=== PATIENT | female | born 1990 | race Caucasian/White ===

== ENCOUNTER 2017-02-06 11:41 | Inpatient (IN) ==
[2017-02-06] MEDS ORDERED: OLANZapine INJ 10 MG VIAL IM ONE ×2 (12:27→14:14)
--- OUTSIDE RECORDS SUMMARY | 2017-02-06 12:36 | External Medical Summary ---
:1990 Author Organization eClinicalWorks Care Team Providers Name Role Phone Campbell Zamora Provider Role Unavailable Allergies No Known Allergies Problems No Known Problems Medications No Known Medications Results No Known Results Summary Purpose eClinicalWorks Submission
--- OUTSIDE RECORDS SUMMARY | 2017-02-06 12:36 | External Medical Summary | Referral Summary ---
:1990 Author Organization Via [facility] Address [address] [place] [address] Care Team Providers Name Role Phone [facility], [facility] Primary Care Physician Unavailable Encounter [facility] [id number] Date(s): 08/15/15 - 08/15/15 [facility] [address] [place], [place] [address] Discharge Diagnosis: Knee joint pain Discharge Diagnosis: Right ankle sprain Discharge Disposition: 01-Home or Self Care Attending Physician: George Link MD Admitting Physician: George Link MD Referring Physician: No PCP, Pt States Vital Signs Most recent to oldest [Reference Range]: 1 Temperature Oral [35.8-37.3 degC] 36.6 degC (08/15/15 3:27 PM) Peripheral Pulse Rate [60-100 bpm] 128 bpm *HI* (08/15/15 3:27 PM) Respiratory Rate [14-20 br/min] 18 br/min (08/15/15 3:27 PM) Blood Pressure [90-140/60-90 mmHg] 130/84mmHg (08/15/15 3:27 PM) SpO2 99 % (08/15/15 3:27 PM) Problem List Condition Effective Dates Status Health Status Informant Acute pain(Confirmed) Active Anxiety(Confirmed) Active patient Depression(Confirmed) Active patient Hx of pilonidal cyst(Confirmed) Active patient Migraines(Confirmed) Active patient Ovarian cyst(Confirmed) Active patient Paranoid schizophrenia(Confirmed) Active patient Schizophrenia(Confirmed) Active Tobacco user(Confirmed) Active patient Allergies, Adverse Reactions, Alerts Substance Reaction Severity Status Cinnamon Anaphylaxis Severe Active doxycycline Breath shortness Severe Active hydrOXYzine Throat swelling Severe Active Macrobid Shortness of breath Severe Active sulfamethoxazole-trimethoprim Adverse Reaction Mild Active Emesis - persistent Medications Bactroban 1 govind, Topical, TID, 0 Refill(s) Start Date: 03/30/15 Status: OrderedBenadryl 0 Refill(s) Start Date: 07/13/15 Status: OrderedCrutches (DME) DME Item crutches, ankle/knee sprain, 1 week or until improvement of pain, See Instructions, # 1 Each, 0 Refill(s), Supply Start Date: 08/15/15 Status: OrderedKeflex Oral, 0 Refill(s) Start Date: 06/26/15 Status: OrderedLevsin SL 0.125 mg sublingual tablet 0.125 mg 1 tabs, SubLingual, q4hr, Abdominal Cramping, per protocol Dr. Yasmany Goetz, # 12 tabs, 0 Refill(s) Start Date: 05/03/15 Status: OrderedMobic 15 mg oral tablet 15 mg 1 tabs, Oral, Daily, # 10 tabs, 0 Refill(s) Start Date: 08/15/15 Stop Date: 08/25/15 Status: OrderedNaprosyn 250 mg oral tablet 250 mg 1 tabs, Oral, BID, as needed for pain, # 20 tabs, 0 Refill(s) Start Date: 06/26/15 Status: OrderedNorco 5 mg-325 mg oral tablet 1 tabs, Oral, q6hr, as needed for pain, # 12 tabs, 0 Refill(s) Start Date: 08/15/15 Stop Date: 08/16/15 Status: OrderedRisperDAL 2 mg oral tablet 2 mg 1 tabs, Oral, BID, 0 Refill(s), Indication: psychosis Start Date: 03/30/15 Status: OrderedRisperDAL Consta 25 mg 2 mL, IntraMuscular, q2wk, 0 Refill(s) Start Date: 03/30/15 Status: OrderedSEROquel 50 mg oral tablet 50 mg 1 tabs, Oral, Bedtime (once a day), Sleep, 0 Refill(s), Indication: insomnia Start Date: 03/30/15 Status: Ordered Results No data available for this section Immunizations No data available for this section Procedures Procedure Date Related Diagnosis Body Site Excision Cyst Pilonidal1 03/15/15 section CSECTION Dental operation Pilonidal incision 1auto-populated from documented surgical case Social History Social History Type Response Smoking Status Current every day smoker; Type: Cigarettes; Tobacco use per day : 1 Pack Assessment and Plan No data available for this section
--- OUTSIDE RECORDS SUMMARY | 2017-02-06 12:36 | External Medical Summary | Referral Summary ---
:1990 Author Organization Via [facility] Address [address] [place] [address] Care Team Providers Name Role Phone [facility], [facility] Primary Care Physician Unavailable Encounter [facility] [id number] Date(s): 12/18/15 - 12/18/15 [facility] [address] [place], [place] [address] Discharge Diagnosis: Abdominal pain Discharge Disposition: 01-Home or Self Care Attending Physician: John Parham DO Admitting Physician: John Parham DO Vital Signs Most recent to oldest [Reference Range]: 1 Temperature Oral [35.8-37.3 degC] 36.9 degC (12/18/15 7:13 PM) Peripheral Pulse Rate [60-100 bpm] 78 bpm (12/18/15 10:30 PM) Respiratory Rate [14-20 br/min] 16 br/min (12/18/15 10:30 PM) Blood Pressure [90-140/60-90 mmHg] 134/93mmHg (12/18/15 10:30 PM) SpO2 100 % (12/18/15 10:30 PM) Problem List Condition Effective Dates Status Health Status Informant Acute pain(Confirmed) Active Anxiety(Confirmed) Active patient Depression(Confirmed) Active patient Hx of pilonidal Active patient cyst(Confirmed) Migraines(Confirmed) Active patient Ovarian cyst(Confirmed) Active patient Paranoid Active patient schizophrenia(Confirmed) (Confirmed) 12/27/14 - 03/30/15 10:45 PM Resolved Schizophrenia(Confirmed) Active Tobacco user(Confirmed) Active patient Allergies, Adverse Reactions, Alerts Substance Reaction Severity Status Cinnamon Anaphylaxis Severe Active doxycycline Breath shortness Severe Active hydrOXYzine Throat swelling Severe Active Macrobid Shortness of breath Severe Active sulfamethoxazole-trimethoprim Adverse Reaction Mild Active Emesis - persistent Zoloft Active Medications Benadryl 0 Refill(s) Start Date: 07/13/15 Status: OrderedCrutches (DME) DME Item crutches, ankle/knee sprain, 1 week or until improvement of pain, See Instructions, # 1 Each, 0 Refill(s), Supply Start Date: 08/15/15 Status: OrderedHibiclens 4% topical soap 1 govind, Topical, Once, # 100 mL, 1 Refill(s) Start Date: 09/11/15 Status: OrderedHYDROcodone-acetaminophen 5 mg-325 mg oral tablet 1 tabs, Oral, q4hr, Pain Moderate (4-6), # 12 tabs, 0 Refill(s) Start Date: 11/14/15 Status: OrderedKeflex Oral, 0 Refill(s) Start Date: 06/26/15 Status: OrderedLevsin SL 0.125 mg sublingual tablet 0.125 mg 1 tabs, SubLingual, q4hr, Abdominal Cramping, # 15 tabs, 0 Refill(s) Start Date: 12/04/15 Status: OrderedNorco 5 mg-325 mg oral tablet tabs, Oral, q6hr, 0 Refill(s) Start Date: 09/11/15 Status: OrderedNorco 5 mg-325 mg oral tablet 1 tabs, Oral, q4hr, as needed for pain, X 2 days, # 12 tabs, 0 Refill(s) Start Date: 12/18/15 Stop Date: 12/20/15 Status: Orderedpenicillin V potassium 500 mg oral tablet 1,000 mg 2 tabs, Oral, BID, X 10 days, # 40 tabs, 0 Refill(s) Start Date: 12/12/15 Stop Date: 12/22/15 Status: OrderedRisperDAL 2 mg oral tablet 2 mg 1 tabs, Oral, BID, 0 Refill(s), Indication: psychosis Start Date: 03/30/15 Status: OrderedRisperDAL Consta 25 mg 2 mL, IntraMuscular, q2wk, 0 Refill(s) Start Date: 03/30/15 Status: OrderedSEROquel 50 mg oral tablet 50 mg 1 tabs, Oral, Bedtime (once a day), Sleep, 0 Refill(s), Indication: insomnia Start Date: 03/30/15 Status: OrderedZofran ODT 4 mg oral tablet, disintegrating 4 mg 1 tabs, Oral, q4hr, Nausea or Vomiting | as needed for nausea/vomiting, X 2 days, # 12 tabs, 0 Refill(s) Start Date: 12/18/15 Stop Date: 12/20/15 Status: Ordered Results Hematology Most recent to oldest [Reference Range]: 1 WBC [4.8-10.8 10*3/uL] 10.3 10*3/uL (12/18/15 7:39 PM) RBC [4.00-5.20] 4.98 (12/18/15 7:39 PM) Hgb [12.0-16.0 gm/dL] 13.4 gm/dL (12/18/15 7:39 PM) Hct [37.0-47.0 %] 40.3 % (12/18/15 7:39 PM) MCV [82.0-99.0 fL] 80.9 fL *LOW* (12/18/15 7:39 PM) MCH [27.0-32.0 pg] 26.9 pg *LOW* (12/18/15 7:39 PM) MCHC [32.0-36.0 gm/dL] 33.3 gm/dL (12/18/15 7:39 PM) RDW [11.5-14.5 %] 14.6 % *HI* (12/18/15 7:39 PM) Platelet [150-400 10*3/uL] 301 10*3/uL (12/18/15 7:39 PM) MPV [9.4-12.4 fL] 10.3 fL (12/18/15 7:39 PM) Immature Granulocytes [0.0-1.0 %] 0.2 % (12/18/15 7:39 PM) Neutrophils [51-75 %] 68 % (12/18/15 7:39 PM) Lymphocytes [20-46 %] 23 % (12/18/15 7:39 PM) Monocytes [4-11 %] 7 % (12/18/15 7:39 PM) Eosinophils [0-4 %] 2 % (12/18/15 7:39 PM) Basophils [0-2 %] 0 % (12/18/15 7:39 PM) Neutro Absolute [1.90-7.00 10*3] 7.03 10*3 *HI* (12/18/15 7:39 PM) Lymph Absolute [0.80-3.30 10*3] 2.32 10*3 (12/18/15 7:39 PM) [place] Absolute [0.30-1.00 10*3] 0.71 10*3 (12/18/15 7:39 PM) Eos Absolute [0.00-0.50 10*3] 0.16 10*3 (12/18/15 7:39 PM) Baso Absolute [0.00-0.20 10*3] 0.04 10*3 (12/18/15 7:39 PM) Chemistry Most recent to oldest [Reference Range]: 1 Sodium Lvl [136-144 mEq/L] 136 mEq/L (12/18/15 7:39 PM) Potassium Lvl [3.6-5.1 mEq/L] 4.3 mEq/L1 (12/18/15 7:39 PM) Chloride [99-109 mEq/L] 106 mEq/L (12/18/15 7:39 PM) CO2 [22-32 mEq/L] 23 mEq/L (12/18/15 7:39 PM) AGAP [3-20] 7 (12/18/15 7:39 PM) BUN [4-20 mg/dL] 8 mg/dL (12/18/15 7:39 PM) Glucose Lvl [70-100 mg/dL] 105 mg/dL *HI* (12/18/15 7:39 PM) Creatinine Lvl [0.44-1.03 mg/dL] 0.79 mg/dL (12/18/15 7:39 PM) eGFR [>60] >602 (12/18/15 7:39 PM) Calcium Lvl [8.6-10.0 mg/dL] 9.2 mg/dL (12/18/15 7:39 PM) Albumin Lvl [3.5-4.8 gm/dL] 3.7 gm/dL (12/18/15 7:39 PM) Total Protein [6.1-7.9 gm/dL] 6.3 gm/dL (12/18/15 7:39 PM) Globulin [1.9-4.3 gm/dL] 2.6 gm/dL (12/18/15 7:39 PM) ALT [14-54 U/L] 22 U/L (12/18/15 7:39 PM) AST [15-41 U/L] 25 U/L (12/18/15 7:39 PM) Alk Phos [26-104 U/L] 92 U/L (12/18/15 7:39 PM) Bili Total [0.2-1.2 mg/dL] 0.6 mg/dL3 (12/18/15 7:39 PM) Lipase Lvl [8-48 U/L] 25 U/L (12/18/15 7:39 PM) 1Result Comment: Hemolyzed specimen. The following tests may be affected: ALT, AST, Ammonia, Iron, Potassium, LDH, Amylase, CPK, and Total Bilirubin.2Result Comment : Multiply eGFR results by 1.21 for race.3Result Comment: Naproxen, specifically the metabolite O-desmethylnaproxen, may cause spurious elevation in Total Bilirubin levels.Urinalysis Most recent to oldest [Reference Range]: 1 UA Color Yellow (12/18/15 7:39 PM) UA Appear Clear (12/18/15 7:39 PM) UA pH [5.0-8.0] 7.0 (12/18/15 7:39 PM) UA Leuk Est [Negative] Negative (12/18/15 7:39 PM) UA Nitrite [Negative] Negative (12/18/15 7:39 PM) UA Protein [Negative] Negative (12/18/15 7:39 PM) UA Glucose [Negative] Negative (12/18/15 7:39 PM) UA Ketones [Negative] Negative (12/18/15 7:39 PM) UA Urobilinogen [<1.0] Negative (12/18/15 7:39 PM) UA Bili [Negative] Negative (12/18/15 7:39 PM) UA Blood [Negative] Pos 1+ *ABN* (12/18/15 7:39 PM) UA Spec Grav [1.003-1.030] 1.020 (12/18/15 7:39 PM) Type Clean Catch (12/18/15 7:39 PM) UA WBC [0-4] 0-2 (12/18/15 7:39 PM) UA RBC [0-2] 2-5 (12/18/15 7:39 PM) Epithelial Cells 0-2 (12/18/15 7:39 PM) UA Bacteria Rare (12/18/15 7:39 PM) UA Mucous Present (12/18/15 7:39 PM) Immunizations No data available for this section Procedures Procedure Date Related Diagnosis Body Site Excision Cyst Pilonidal1 03/15/15 section CSECTION Dental operation Pilonidal incision 1auto-populated from documented surgical case Social History Social History Type Response Smoking Status Current every day smoker; Type: Cigarettes; Tobacco use per day : 1 Pack Assessment and Plan No data available for this section"
--- OUTSIDE RECORDS SUMMARY | 2017-02-06 12:36 | External Medical Summary | Referral Summary ---
:1990 Author Organization [facility] Address [address] [place] [address] Care Team Providers Name Role Phone [facility], [facility] Primary Care Physician Unavailable Encounter [facility] [id number] Date(s): 09/24/15 - 09/24/15 [facility] [address] [place] [id number] Discharge Diagnosis: Dental caries Discharge Diagnosis: Fracture of tooth Discharge Disposition: 01-Home or Self Care Attending Physician: George Link MD Admitting Physician: George Link MD Vital Signs Most recent to oldest [Reference Range]: 1 Temperature Oral [35.8-37.3 degC] 37.2 degC (09/24/15 7:02 PM) Peripheral Pulse Rate [60-100 bpm] 114 bpm *HI* (09/24/15 7:02 PM) Respiratory Rate [14-20 br/min] 18 br/min (09/24/15 7:02 PM) Blood Pressure [90-140/60-90 mmHg] 131/74mmHg (09/24/15 7:02 PM) SpO2 97 % (09/24/15 7:02 PM) Problem List Condition Effective Dates Status [...] Reaction Mild Active Emesis - persistent Medications Augmentin 875 mg-125 mg oral tablet 1 tabs, Oral, q12hr, X 7 days, # 14 tabs, 0 Refill(s) Start Date: 09/24/15 Stop Date: 10/01/15 Status: OrderedBactroban 1 govind, Topical, TID, 0 Refill(s) Start Date: 03/30/15 Status: OrderedBenadryl 0 Refill(s) Start Date: 07/13/15 Status: OrderedCrutches (DME) DME Item crutches, ankle/knee sprain, 1 week or until improvement of pain, See Instructions, # 1 Each, 0 Refill(s), Supply Start Date: 08/15/15 Status: OrderedHibiclens 4% topical soap 1 govind, Topical, Once, # 100 mL, 1 Refill(s) Start Date: 09/11/15 Status: OrderedKeflex Oral, 0 Refill(s) Start Date: 06/26/15 Status: OrderedNorco 5 mg-325 mg oral tablet tabs, Oral, q6hr, 0 Refill(s) Start Date: 09/11/15 Status: OrderedRisperDAL 2 mg oral tablet 2 [...]
--- OUTSIDE RECORDS SUMMARY | 2017-02-06 12:36 | External Medical Summary | Referral Summary ---
:1990 Author Organization [facility] Address [address] [place] [address] Care Team Providers Name Role Phone [facility], [facility] Primary Care Physician Unavailable Encounter [facility] [id number] Date(s): 12/12/15 - 12/12/15 [facility] [address] [place], [place] [address] Discharge Diagnosis: Pain, dental Discharge Diagnosis: Dental cavity Discharge Disposition: 01-Home or Self Care Attending Physician: George Link MD Admitting Physician: George Link MD Referring Physician: No PCP, Pt States Vital Signs Most recent to oldest [Reference Range]: 1 Temperature Temporal Artery [36.3-37.8 degC] 36.8 degC (12/12/15 3:17 PM) Peripheral Pulse Rate [60-100 bpm] 119 bpm *HI* (12/12/15 3:17 PM) Respiratory Rate [14-20 br/min] 16 br/min (12/12/15 3:17 PM) Blood Pressure [90-140/60-90 mmHg] 148/88mmHg *HI* (12/12/15 3:17 PM) SpO2 97 % (12/12/15 3:17 PM) Problem List Condition Effective Dates Status [...] tabs, Oral, q6hr, as needed for pain, X 4 days, # 16 tabs, 0 Refill(s) Start Date: 12/12/15 Stop Date: 12/16/15 Status: OrderedNorco 5 mg-325 mg oral tablet tabs, Oral, q6hr, 0 Refill(s) Start Date: 09/11/15 Status: Orderedpenicillin V potassium 500 mg oral [...]
--- OUTSIDE RECORDS SUMMARY | 2017-02-06 12:36 | External Medical Summary | Referral Summary ---
:1990 Author Organization [facility] Address [address] [place] [address] Care Team Providers Name Role Phone [facility], [facility] Primary Care Physician Unavailable Encounter [facility] [id number] Date(s): 10/02/15 - 10/02/15 [facility] [address] [place], [place] [address] Discharge Diagnosis: Abscess of left thigh Discharge Disposition: 01-Home or Self Care Attending Physician: George Link MD Admitting Physician: George Link MD Vital Signs Most recent to oldest [Reference Range]: 1 Temperature Temporal Artery [36.3-37.8 degC] 37.4 degC (10/02/15 4:48 PM) Peripheral Pulse Rate [60-100 bpm] 86 bpm (10/02/15 4:48 PM) Respiratory Rate [14-20 br/min] 16 br/min (10/02/15 4:48 PM) Blood Pressure [90-140/60-90 mmHg] 117/99mmHg (10/02/15 4:48 PM) SpO2 97 % (10/02/15 4:48 PM) Problem List Condition Effective Dates Status [...] Reaction Mild Active Emesis - persistent Medications Benadryl 0 Refill(s) Start Date: 07/13/15 [...]
--- OUTSIDE RECORDS SUMMARY | 2017-02-06 12:36 | External Medical Summary ---
:1990 Author Organization eClinicalWorks Care Team Providers Name Role Phone Campbell Zamora Provider Role Unavailable Allergies, Adverse Reactions, Alerts Substance Reaction Event Type Sulfacet-R Cant breathe Drug Allergy Macrobid Cant Breathe Drug Allergy HydrOXYzine HCl Cant breathe Drug Allergy Problems Problem Type Condition ICD-9 Code Onset Dates Condition Status Assessment Nondependent tobacco use 305.1 Active disorder Assessment Abdominal pain, right upper 789.01 Active quadrant Medications Medication Code Code Instructions Start End Date Status Dosage System Date Ondansetron HCl [facility] [address]009-21 4 MG Orally Jun 16, Active as directed 33-19 every 6 hours as 2013 [place] [address]-66 200 MG Orally Active 1 tablet as 74-71 every 6 hrs needed Procedures Procedure Coding System Code Date Office Visit, New Pt., Level 3 CPT-4 44788 Jun 16, 2014 Vital Signs Date/Time: Jun 16, 2014 BMI 31.89 Index Weight 185.8 lbs Height 64 in Blood Pressure Diastolic 82 mm Hg Blood Pressure Systolic 122 mm Hg Temperature 98.3 F Cardiac Monitoring Heart Rate 119 /min Results No Known Results Summary Purpose eClinicalWorks Submission
--- OUTSIDE RECORDS SUMMARY | 2017-02-06 12:36 | External Medical Summary | Referral Summary ---
:1990 Author Organization Via [facility] Address [address] [place] [address] Care Team Providers Name Role Phone [facility], [facility] Primary Care Physician Unavailable Encounter [facility] [id number] Date(s): 06/26/15 - 06/26/15 [facility] [address] [place], [place] [address] Discharge Diagnosis: Back ache Discharge Disposition: 01-Home or Self Care Attending Physician: George Link MD Admitting Physician: George Link MD Vital Signs Most recent to oldest [Reference Range]: 1 Temperature Oral [35.8-37.3 degC] 36.8 degC (06/26/15 6:43 PM) Peripheral Pulse Rate [60-100 bpm] 98 bpm (06/26/15 7:48 PM) Respiratory Rate [14-20 br/min] 16 br/min (06/26/15 7:48 PM) Blood Pressure [90-140/60-90 mmHg] 118/97mmHg (06/26/15 7:48 PM) SpO2 97 % (06/26/15 6:43 PM) Problem List Condition Effective Dates Status [...] TID, 0 Refill(s) Start Date: 03/30/15 Status: Orderedcyclobenzaprine 10 mg oral tablet 10 mg 1 tabs, Oral, TID, as needed for spasm, X 7 days, # 21 tabs, 0 Refill(s) Start Date: 06/26/15 Stop Date: 07/03/15 Status: OrderedKeflex Oral, 0 Refill(s) Start Date: 06/26/15 Status: OrderedLevsin SL 0.125 mg sublingual tablet 0.125 mg 1 tabs, SubLingual, q4hr, Abdominal Cramping, per protocol Dr. Yasmany Goetz, # 12 tabs, 0 Refill(s) Start Date: 05/03/15 Status: OrderedNaprosyn 250 mg oral tablet 250 mg 1 tabs, Oral, BID, as needed for pain, # 20 tabs, 0 Refill(s) Start Date: 06/26/15 Status: OrderedRisperDAL 2 mg oral tablet 2 [...]
--- OUTSIDE RECORDS SUMMARY | 2017-02-06 12:36 | External Medical Summary ---
:1990 Author Organization [facility] Address [address] [place] [address] Care Team Providers Name Role Phone Leonardo Angeles Unavailable Unavailable PROBLEMS Unknown Problems ALLERGIES Unknown Allergies SOCIAL HISTORY No smoking Hx information available PLAN OF CARE VITAL SIGNS MEDICATIONS Medication Instructions Dosage Frequency Start End Duration Status Date Date MedroxyPROGESTERone Orally Once a 1 tablet 24h 30 Dec, 5 Jan, 5 day(s) Active Acetate 10 MG day 2016 2016 RESULTS No Results PROCEDURES No Known procedures IMMUNIZATIONS No Known Immunizations
--- OUTSIDE RECORDS SUMMARY | 2017-02-06 12:36 | External Medical Summary | Referral Summary ---
:1990 Author Organization Via [facility] Address [address] [place] [address] Care Team Providers Name Role Phone [facility], [facility] Primary Care Physician Unavailable Encounter [facility] [id number] Date(s): 03/22/16 - 03/23/16 [facility] [address] [place], [place] [address] Discharge Diagnosis: Contusion of fourth toe, left Discharge Disposition: 01-Home or Self Care Attending Physician: Tenzin Hemphill DO Admitting Physician: Tenzin Hemphill DO Vital Signs Most recent to oldest [Reference Range]: 1 Temperature Oral [35.8-37.3 degC] 36.9 degC (03/22/16 11:50 PM) Peripheral Pulse Rate [60-100 bpm] 122 bpm *HI* (03/22/16 11:50 PM) Respiratory Rate [14-20 br/min] 18 br/min (03/22/16 11:50 PM) Blood Pressure [90-140/60-90 mmHg] 127/79mmHg (03/22/16 11:50 PM) SpO2 98 % (03/22/16 11:50 PM) Problem List Condition Effective Dates Status Health Status Informant Acute pain(Confirmed) Active Anxiety(Confirmed) Active patient Depression(Confirmed) Active patient Hx of pilonidal Active patient cyst(Confirmed) Ineffective coping Active (individual)(Confirmed)1 Migraines(Confirmed) Active patient Ovarian cyst(Confirmed) Active patient (Confirmed) 12/27/14 - 03/30/15 10:45 PM Resolved Schizophrenia(Confirmed) Active Tobacco user(Confirmed) Active patient 1Problem added automatically by system based on initiation of Ineffective Coping Plan of Care Allergies, Adverse Reactions, Alerts Substance Reaction Severity Status Cinnamon Anaphylaxis Severe Active doxycycline Breath shortness Severe Active hydrOXYzine Throat swelling Severe Active Macrobid Shortness of breath Severe Active sulfamethoxazole-trimethoprim Adverse Reaction Mild Active Emesis - persistent Zoloft Active Medications benztropine 1 mg oral tablet 0.5 mg 0.5 tabs, Oral, TID, Extrapyramidal Symptoms, # 45 tabs, 0 Refill(s), Indication: EPS Start Date: 03/09/16 Status: Orderedgabapentin 300 mg oral capsule 300 mg 1 caps, Oral, Bedtime (once a day), # 30 caps, 0 Refill(s), Indication: NEURONTIN Start Date: 03/09/16 Status: OrderedNorco 5 mg-325 mg oral tablet tabs, Oral, q6hr, 0 Refill(s) Start Date: 03/22/16 Status: OrderedProtonix 40 mg oral delayed release tablet 40 mg 1 tabs, Oral, Daily, # 30 tabs, 0 Refill(s), Indication: GERD Start Date: 03/09/16 Status: OrderedRisperDAL Consta 50 mg 2 mL, IntraMuscular, q2wk, 0 Refill(s), Indication: MOOD/ PSYCHOSIS Start Date: 03/09/16 Status: OrderedSEROquel 100 mg oral tablet 300 mg 3 tabs, Oral, Bedtime (once a day), # 90 tabs, 0 Refill(s), Indication: MOOD/ SLEEP, PSYCHOSIS Start Date: 03/09/16 Status: OrderedSEROquel 50 mg oral tablet 50 mg 1 tabs, Oral, TID, Other (See Comment), # 90 tabs, 0 Refill(s), Indication : AGITATION. PSYCH. ANXIETY Start Date: 03/09/16 Status: Ordered Results No data available for this section Immunizations No data available for this section Procedures Procedure Date Related Diagnosis Body Site Excision Cyst Pilonidal1 03/15/15 section CSECTION Dental operation Pilonidal incision 1auto-populated from documented surgical case Social History Social History Type Response Smoking Status Current every day smoker; Type: Cigarettes; Tobacco use per day : Pack Assessment and Plan No data available for this section
--- OUTSIDE RECORDS SUMMARY | 2017-02-06 12:36 | External Medical Summary | Referral Summary ---
:[address] [facility] Address [address] [place] [address] Care Team Providers Name Role Phone No PCP, Pt States Primary Care Physician Encounter [facility] [id number] Date(s): 09/02/16 - 09/02/[address] [facility] [address], [place] [address] Discharge Diagnosis: Abdominal pain in female Discharge Disposition: 01-Home or Self Care Attending Physician: Tenzin Hemphill DO Admitting Physician: Tenzin Hemphill DO Vital Signs Most recent to oldest [Reference Range]: 1 Temperature Temporal Artery [36.3-37.8 degC] 36.7 degC (09/02/16 6:26 PM) Peripheral Pulse Rate [60-100 bpm] 72 bpm (09/02/16 9:29 PM) Respiratory Rate [14-20 br/min] 18 br/min (09/02/16 9:29 PM) Blood Pressure [90-140/60-90 mmHg] 115/80mmHg (09/02/16 9:29 PM) SpO2 99 % (09/02/16 9:29 PM) Problem List Condition Effective Dates Status Health Status Informant Acute pain(Confirmed) Active Anxiety(Confirmed) Active patient Depression(Confirmed) Active patient Hx of pilonidal Active patient cyst(Confirmed) Ineffective coping Active (individual)(Confirmed)1 Migraines(Confirmed) Active patient Obesity(Confirmed) Active patient Ovarian cyst(Confirmed) Active patient (Confirmed) [...] Symptoms, # 45 tabs, 0 Refill(s), Indication: eps Start Date: 08/02/16 Status: Orderedgabapentin 300 mg oral capsule 300 mg 1 caps, Oral, Bedtime (once a day), # 30 caps, 0 Refill(s), Indication: NEURONTIN Start Date: 08/02/16 Status: OrderedInvega Sustenna 156 mg/mL intramuscular suspension, extended release 156 mg, IntraMuscular, qMonth, 0 Refill(s), Indication: psychosis Start Date: 08/01/16 Status: OrderedNaprosyn 375 mg oral tablet 375 mg 1 tabs, Oral, BID, as needed for pain, # 20 tabs, 0 Refill(s) Start Date: 09/02/16 Status: OrderedNorco 5 mg-325 mg oral tablet tabs, Oral, q6hr, 0 Refill(s) Start Date: 08/21/16 Status: OrderedRisperDAL 2 mg oral tablet 2 mg 1 tabs, Oral, BID, # 60 tabs, 0 Refill(s), Indication: psychosis Start Date: 08/02/16 Status: OrderedTradjenta mg, Oral, Daily, 0 Refill(s) Start Date: 09/02/16 Status: Ordered Results Hematology Most recent to oldest [Reference Range]: 1 WBC [4.8-10.8 10*3/uL] 8.9 10*3/uL (09/02/16 7:31 PM) RBC [4.00-5.20] 5.61 *HI* (09/02/16 7:31 PM) Hgb [12.0-16.0 gm/dL] 15.3 gm/dL (09/02/16 7:31 PM) Hct [37.0-47.0 %] 45.3 % (09/02/16 7:31 PM) MCV [82.0-99.0 fL] 80.7 fL *LOW* (09/02/16 7:31 PM) MCH [27.0-32.0 pg] 27.3 pg (09/02/16:31 PM) MCHC [32.0-36.0 gm/dL] 33.8 gm/dL (09/02/16:31 PM) RDW [11.5-14.5 %] 14.4 % (09/02/16 7:31 PM) Platelet [150-400 10*3/uL] 305 10*3/uL (09/02/16:31 PM) MPV [9.4-12.4 fL] 10.2 fL (09/02/16:31 PM) Immature Granulocytes [0.0-1.0 %] 0.2 % (09/02/16:31 PM) Neutrophils [51-75 %] 68 % (09/02/16:31 PM) Lymphocytes [20-46 %] 24 % (09/02/16:31 PM) Monocytes [4-11 %] 6 % (09/02/16:31 PM) Eosinophils [0-4 %] 2 % (09/02/16:31 PM) Basophils [0-2 %] 0 % (09/02/16:31 PM) Neutro Absolute [1.90-7.00] 6.03 (09/02/16:31 PM) Lymph Absolute [0.80-3.30] 2.12 (09/02/16 7:31 PM) Deuel Absolute [0.30-1.00] 0.56 (09/02/16 7:31 PM) Eos Absolute [0.00-0.50] 0.17 (09/02/16:31 PM) Baso Absolute [0.00-0.20] 0.04 (09/02/16:31 PM) Chemistry Most recent to oldest [Reference Range]: 1 Sodium Lvl [136-144 mEq/L] 139 mEq/L (09/02/16 7:31 PM) Potassium Lvl [3.6-5.1 mEq/L] 4.3 mEq/L1 (09/02/16 7:31 PM) Chloride [99-109 mEq/L] 107 mEq/L (09/02/16 7:31 PM) CO2 [22-32 mEq/L] 24 mEq/L (2/5/17 7:31 PM) AGAP [3-20] 8 (09/02/16 7:31 PM) BUN [4-20 mg/dL] 5 mg/dL (09/02/16 7:31 PM) Glucose Lvl [70-100 mg/dL] 92 mg/dL (09/02/16 7:31 PM) Creatinine Lvl [0.44-1.03 mg/dL] 0.77 mg/dL (09/02/16 7:31 PM) eGFR [>60] >602 (09/02/16 7:31 PM) Calcium Lvl [8.6-10.0 mg/dL] 9.7 mg/dL (09/02/16 7:31 PM) Screen, Urine NPT Negative (09/02/16 6:39 PM) 1Result Comment: Hemolyzed specimen. The following tests may be affected: ALT, AST, Ammonia, Iron, Potassium, LDH, Amylase, CPK, and Total Bilirubin.2Result Comment : Multiply eGFR results by 1.21 for race.Urinalysis Most recent to oldest [Reference Range]: 1 UA Color Straw (09/02/16 6:36 PM) UA Appear Sl Cloudy (09/02/16 6:36 PM) UA pH [5.0-8.0] 5.0 (09/02/16 6:36 PM) UA Leuk Est [Negative] Negative (09/02/16 6:36 PM) UA Nitrite [Negative] Negative (09/02/16 6:36 PM) UA Protein [Negative] Negative (09/02/16 6:36 PM) UA Glucose [Negative] Negative (09/02/16 6:36 PM) UA Ketones [Negative] Negative (09/02/16 6:36 PM) UA Urobilinogen [<1.0] Negative (09/02/16 6:36 PM) UA Bili [Negative] Negative (09/02/16 6:36 PM) UA Blood [Negative] Pos 1+ *ABN* (09/02/16 6:36 PM) UA Spec Grav [1.003-1.030] 1.005 (09/02/16 6:36 PM) Type Clean Catch (09/02/16 6:36 PM) UA WBC [0-4] 2-5 (09/02/16 6:36 PM) UA RBC [0-2] 0-2 (09/02/16 6:36 PM) Epithelial Cells 10-20 (09/02/16 6:36 PM) UA Bacteria Moderate *ABN* (09/02/16 6:36 PM) Microbiology Reports TEST:Affirm Vaginitis Panel STATUS:Auth (Verified) BODY SITE: SOURCE:Cervix/Vaginal COLLECTED DATE/TIME:09/02/16 7:44 PMAffirm Vaginitis PanelNegative for Trichomonas vaginalis Negative for Gardnerella vaginalis Negative for Jodi species Immunizations No data available for this section [...]
--- OUTSIDE RECORDS SUMMARY | 2017-02-06 12:36 | External Medical Summary | Referral Summary ---
:1990 Author Organization [facility] Address [address] [place] [address] Care Team Providers Name Role Phone [facility] Primary Care Physician Unavailable Encounter [facility] [id number] Date(s): 03/02/16 - 03/06/16 [facility] [address], [place] [address] Discharge Diagnosis: Psychosis Discharge Diagnosis: Methamphetamine abuse Discharge Diagnosis: Drug intoxication Discharge Diagnosis: Rhabdomyolysis Discharge Diagnosis: Dehydration Discharge Diagnosis: Hypokalemia Discharge Diagnosis: Tachycardia Discharge Disposition: -Psychiatric Facility Attending Physician: Priya Mcdaniel MD Admitting Physician: Lisbeth Woodard MD Vital Signs Most recent to oldest [Reference Range]: 1 Temperature Oral [35.8-37.3 degC] 37.0 degC (03/05/16 8:27 PM) Temperature Temporal Artery [36.3-37.8 degC] 36.6 degC (03/06/16 8:00 AM) Apical Heart Rate [60-100 bpm] 160 bpm *HI* (03/02/16 8:52 PM) Peripheral Pulse Rate [60-100 bpm] 75 bpm (03/05/16 8:27 PM) Heart Rate Monitored [60-100 bpm] 76 bpm (03/06/16 8:00 AM) Respiratory Rate [14-20 br/min] 14 br/min (03/06/16 8:00 AM) Blood Pressure [90-140/60-90 mmHg] 92/56mmHg (03/06/16 8:00 AM) Mean Arterial Pressure, Cuff 100 mmHg (03/05/16 8:27 PM) SpO2 93 % (03/06/16 8:00 AM) Remote Telemetry Ongoing (03/04/16 4:00 PM) Problem List Condition Effective Dates Status Health Status Informant Acute pain(Confirmed) Active Anxiety(Confirmed) Active patient Depression(Confirmed) Active patient Hx of pilonidal Active patient cyst(Confirmed) Impaired skin Active integrity(Confirmed)1 Ineffective coping Active (individual)(Confirmed)2 Migraines(Confirmed) Active patient Ovarian cyst(Confirmed) Active patient Paranoid Active patient schizophrenia(Confirmed) (Confirmed) 12/27/14 - 03/30/15 10:45 PM Resolved Schizophrenia(Confirmed) Active Tobacco user(Confirmed) Active patient 1Problem added automatically by system based on initiation of Impaired Skin Integrity Plan of [id number] added automatically by system based on initiation of Ineffective Coping Plan of Care Allergies, Adverse Reactions, Alerts Substance Reaction Severity Status Cinnamon Anaphylaxis Severe Active doxycycline Breath shortness Severe Active hydrOXYzine Throat swelling Severe Active Macrobid Shortness of breath Severe Active sulfamethoxazole-trimethoprim Adverse Reaction Mild Active Emesis - persistent Zoloft Active Medications Communication Discharge readmit from 5IM, 0 Refill(s) Start Date: 03/06/16 Status: Orderedgabapentin 300 mg, Oral, Bedtime (once a day), 0 Refill(s) Start Date: 02/17/16 Status: Orderedniacin 500 mg, Oral, Bedtime (once a day), as needed, 0 Refill(s) Start Date: 03/02/16 Status: OrderedNorco 5 mg-325 mg oral tablet 1 tabs, Oral, q4hr, as needed for pain, 0 Refill(s) Start Date: 09/11/15 Status: OrderedRisperDAL Consta 50 mg 2 mL, IntraMuscular, q2wk, 0 Refill(s) Start Date: 03/05/16 Status: Ordered Results Hematology Most recent to oldest [Reference Range]: 1 WBC [4.8-10.8 10*3/uL] 8.8 10*3/uL (03/06/16 3:47 AM) RBC [4.00-5.20] 4.96 (03/06/16 3:47 AM) Hgb [12.0-16.0 gm/dL] 13.3 gm/dL (03/06/16 3:47 AM) Hct [37.0-47.0 %] 39.9 % (03/06/16 3:47 AM) MCV [82.0-99.0 fL] 80.4 fL *LOW* (03/06/16 3:47 AM) MCH [27.0-32.0 pg] 26.8 pg *LOW* (03/06/16 3:47 AM) MCHC [32.0-36.0 gm/dL] 33.3 gm/dL (03/06/16 3:47 AM) RDW [11.5-14.5 %] 14.6 % *HI* (03/06/16 3:47 AM) Platelet [150-400 10*3/uL] 285 10*3/uL (03/06/16 3:47 AM) MPV [9.4-12.4 fL] 10.0 fL (03/06/16 3:47 AM) Immature Granulocytes [0.0-1.0 %] 0.2 % (03/03/16 4:31 AM) Neutrophils [51-75 %] 59 % (03/03/16 4:31 AM) Lymphocytes [20-46 %] 32 % (03/03/16 4:31 AM) Monocytes [4-11 %] 8 % (03/03/16 4:31 AM) Eosinophils [0-4 %] 0 % (03/03/16 4:31 AM) Basophils [0-2 %] 0 % (03/03/16 4:31 AM) Neutro Absolute [1.90-7.00 10*3] 6.54 10*3 (03/03/16 4:31 AM) Lymph Absolute [0.80-3.30 10*3] 3.56 10*3 *HI* (03/03/16 4:31 AM) Merrick Absolute [0.30-1.00 10*3] 0.82 10*3 (03/03/16 4:31 AM) Eos Absolute [0.00-0.50 10*3] 0.02 10*3 (03/03/16 4:31 AM) Baso Absolute [0.00-0.20 10*3] 0.03 10*3 (03/03/16 4:31 AM) Differential Scanned Slide (03/02/16 8:46 PM) Chemistry Most recent to oldest [Reference Range]: 1 Sodium Lvl [136-144 mEq/L] 137 mEq/L (03/06/16 3:47 AM) Potassium Lvl [3.6-5.1 mEq/L] 3.7 mEq/L (03/06/16 3:47 AM) Chloride [99-109 mEq/L] 107 mEq/L (03/06/16 3:47 AM) CO2 [22-32 mEq/L] 24 mEq/L (03/06/16 3:47 AM) AGAP [3-20] 6 (03/06/16 3:47 AM) BUN [4-20 mg/dL] 11 mg/dL (03/06/16 3:47 AM) Glucose Lvl [70-100 mg/dL] 112 mg/dL *HI* (03/06/16 3:47 AM) Creatinine Lvl [0.44-1.03 mg/dL] 0.73 mg/dL (03/06/16 3:47 AM) eGFR [>60] >601 (03/06/16 3:47 AM) Calcium Lvl [8.6-10.0 mg/dL] 8.8 mg/dL (03/06/16 3:47 AM) Albumin Lvl [3.5-4.8 gm/dL] 3.3 gm/dL *LOW* (03/06/16 3:47 AM) Total Protein [6.1-7.9 gm/dL] 5.9 gm/dL *LOW* (03/06/16 3:47 AM) Globulin [1.9-4.3 gm/dL] 2.6 gm/dL (03/06/16 3:47 AM) ALT [14-54 U/L] 30 U/L (03/06/16 3:47 AM) AST [15-41 U/L] 31 U/L (03/06/16 3:47 AM) Alk Phos [26-104 U/L] 78 U/L (03/06/16 3:47 AM) Bili Total [0.2-1.2 mg/dL] 0.1 mg/dL2 *LOW* (03/06/16 3:47 AM) Magnesium Lvl [1.8-2.5 mg/dL] 2.1 mg/dL (03/06/16 3:47 AM) Total CK [38-234 U/L] 668 U/L *HI* (03/06/16 3:47 AM) Troponin [<0.06 ng/mL] 0.05 ng/mL (03/03/16 12:56 PM) Lactic Acid Lvl [0.5-2.2 mEq/L] 1.2 mEq/L (03/03/16 5:23 AM) Chol [0-200 mg/dL] 113 mg/dL (03/03/16 4:31 AM) Trig [0-150 mg/dL] 104 mg/dL (03/03/16 4:31 AM) HDL [>40 mg/dL] 31 mg/dL *ABN* (03/03/16 4:31 AM) LDL [0-100 mg/dL] 61 mg/dL (03/03/16 4:31 AM) VLDL Cholesterol [0-30 mg/dL] 21 mg/dL (03/03/16 4:31 AM) Cardiac Risk [0.0-5.0] 3.6 (03/03/16 4:31 AM) U Beta hCG Ql Negative (03/02/16 8:46 PM) Hepatitis C viral RNA Not Detected (03/03/16 4:31 AM) HCV Log10 Not Applicable3 (03/03/16 4:31 AM) HIV 1 RNA PCR QT-Schulte Undetected4 (03/03/16 4:31 AM) 1Result Comment: Multiply eGFR results by 1.21 for race.2Result Comment: Naproxen, specifically the metabolite O-desmethylnaproxen, may cause spurious elevation in Total Bilirubin levels.3Result Comment: This test is for monitoring of HCV positive patients only and should not be used as a screening test for HCV infection.4Result Comment: Reference Range: Undetected Result in log copies/mL is Undetected. ADDITIONAL INFORMATION The quantification range of this assay is 20 to 10,000,000 copies/mL (1.30 log copies/mL to 7.00 log copies/mL). Testing was performed by the EDIN AmpliPrep/EDIN TaqMan HIV-1 Test version 2.0 ([employer] Test Performed by: [place] [id number] Sales Representative [employer]: Kole Preston II, M.D., Ph.D.Therapeutic Drug Monitoring Most recent to [Reference Range]: 1 Acetaminophen Lvl [10-30 ug/mL] <10 ug/mL (03/02/16 8:46 PM) Salicylate Lvl [0-30 mg/dL] <4 mg/dL (03/02/16 8:46 PM) Toxicology Most recent to [Reference Range]: 1 Ethanol Lvl None Detected (03/02/16 8:46 PM) U Amphetamine Scrn Positive *ABN* (03/02/16 8:46 PM) U Cocaine Scrn Negative (03/02/16 8:46 PM) U Cannab Scrn Negative (03/02/16 8:46 PM) U Opiate Scrn Positive *ABN* (03/02/16 8:46 PM) U PCP Scrn Negative (03/02/16 8:46 PM) U Benzodiazepine Scrn Positive *ABN* (03/02/16 8:46 PM) U Barbiturate Scrn Negative (03/02/16 8:46 PM) Methadone Lvl Negative (03/02/16 8:46 PM) Tricyclics Negative1 (03/02/16 8:46 PM) 1Result Comment: Cut-off concentrations: Amphetamines: 1000 ng/mL Cocaine: 300 ng/mL Cannabinoid: 50 ng/mL Opiate: 300 ng/mL Phencyclidine (PCP): 25 ng/mL Benzodiazepine: 200 ng/mL Barbiturate: 200 ng/mL Methadone: 300 ng/mL Tricyclic: 300 ng/mL The urine drug screen assays are qualitative screens. A more specific GC/MS method must be performed to obtain a confirmed analytical result. Unconfirmed screening results must not be used for non-medical purposes(e.g. employment or legal testing)Urinalysis Most recent to oldest [Reference Range]: 1 UA Color Yellow (03/02/16 8:46 PM) UA Appear Clear (03/02/16 8:46 PM) UA pH [5.0-8.0] 5.0 (03/02/16 8:46 PM) UA Leuk Est [Negative] Negative (03/02/16 8:46 PM) UA Nitrite [Negative] Negative (03/02/16 8:46 PM) UA Protein [Negative] Negative (03/02/16 8:46 PM) UA Glucose [Negative] Negative (03/02/16 8:46 PM) UA Ketones [Negative] Trace *ABN* (03/02/16 8:46 PM) UA Urobilinogen [<1.0] Negative (03/02/16 8:46 PM) UA Bili [Negative] Negative (03/02/16 8:46 PM) UA Blood [Negative] Pos 1+ *ABN* (03/02/16 8:46 PM) UA Spec Grav [1.003-1.030] 1.015 (03/02/16 8:46 PM) Type Clean Catch (03/02/16 8:46 PM) UA WBC [0-4] 0-2 (03/02/16 8:46 PM) UA RBC [0-2] 0-2 (03/02/16 8:46 PM) Epithelial Cells 0-2 (03/02/16 8:46 PM) UA Hyal Cast [0-3] 1-3 (03/02/16 8:46 PM) Microbiology Reports TEST:Blood Culture STATUS:Order in Progress BODY SITE: SOURCE:Blood COLLECTED DATE/TIME:03/03/16 4:31 AMBlood CultureNo growth after 12 hours incubation. Nursing unit will be called if growth is detected. - A blood culture drawn through a catheter with a differential time to positivity at least 2 hours sooner than one drawn from a peripheral vein at the same time suggests a catheter-related bloodstream infection.TEST:Blood Culture STATUS:Order in Progress BODY SITE: SOURCE:Blood COLLECTED DATE/TIME:03/03/16 4:31 AMBlood CultureNo growth after 12 hours incubation. Nursing unit will be called if growth is detected. - A blood culture drawn through a catheter with a differential time to positivity at least 2 hours sooner than one drawn from a peripheral vein at the same time suggests a catheter-related bloodstream infection.TEST:Affirm Vaginitis Panel STATUS:Auth (Verified) BODY SITE: SOURCE:Cervical COLLECTED DATE/TIME:03/03/16 1:30 AMAffirm Vaginitis PanelNegative for Trichomonas vaginalis Negative for [...]
--- OUTSIDE RECORDS SUMMARY | 2017-02-06 12:36 | External Medical Summary | Referral Summary ---
:[address] [facility] Address [address] [place] [address] Care Team Providers Name Role Phone [facility] Primary Care Physician Unavailable Encounter [facility] [id number] Date(s): 08/21/16 - 08/21/[address] [facility] [address], [place] [address] Discharge Diagnosis: Abdominal pain Discharge Disposition: 01-Home or Self Care Attending Physician: Godwin Shen DO Admitting Physician: Godwin Shen DO Vital Signs Most recent to oldest [Reference Range]: 1 Temperature Oral [35.8-37.3 degC] 36.8 degC (08/21/16 5:13 PM) Peripheral Pulse Rate [60-100 bpm] 85 bpm (08/21/16 7:13 PM) Respiratory Rate [14-20 br/min] 17 br/min (08/21/16 7:13 PM) Blood Pressure [90-140/60-90 mmHg] 136/95mmHg (08/21/16 7:13 PM) SpO2 99 % (08/21/16 7:13 PM) Problem List Condition Effective Dates Status [...] Refill(s), Indication: psychosis Start Date: 08/01/16 Status: OrderedNorco 5 mg-325 mg oral tablet tabs, Oral, q6hr, 0 Refill(s) Start Date: 08/21/16 Status: OrderedRisperDAL 2 mg oral tablet 2 mg 1 tabs, Oral, BID, # 60 tabs, 0 Refill(s), Indication: psychosis Start Date: 08/02/16 Status: Ordered Results Hematology Most recent to oldest [Reference Range]: 1 WBC [4.8-10.8 10*3/uL] 10.5 10*3/uL (08/21/16 5:42 PM) RBC [4.00-5.20] 5.81 *HI* (08/21/16 5:42 PM) Hgb [12.0-16.0 gm/dL] 15.6 gm/dL (08/21/16 5:42 PM) Hct [37.0-47.0 %] 46.3 % (08/21/16 5:42 PM) MCV [82.0-99.0 fL] 79.7 fL *LOW* (08/21/16 5:42 PM) MCH [27.0-32.0 pg] 26.9 pg *LOW* (08/21/16 5:42 PM) MCHC [32.0-36.0 gm/dL] 33.7 gm/dL (08/21/16 5:42 PM) RDW [11.5-14.5 %] 14.5 % (08/21/16 5:42 PM) Platelet [150-400 10*3/uL] 341 10*3/uL (08/21/16 5:42 PM) MPV [9.4-12.4 fL] 10.1 fL (08/21/16 5:42 PM) Immature Granulocytes [0.0-1.0 %] 0.2 % (08/21/16 5:42 PM) Neutrophils [51-75 %] 66 % (08/21/16 5:42 PM) Lymphocytes [20-46 %] 26 % (08/21/16 5:42 PM) Monocytes [4-11 %] 7 % (08/21/16 5:42 PM) Eosinophils [0-4 %] 1 % (08/21/16 5:42 PM) Basophils [0-2 %] 0 % (08/21/16 5:42 PM) Neutro Absolute [1.90-7.00] 6.87 (08/21/16 5:42 PM) Lymph Absolute [0.80-3.30] 2.74 (08/21/16 5:42 PM) Garfield Absolute [0.30-1.00] 0.74 (08/21/16 5:42 PM) Eos Absolute [0.00-0.50] 0.07 (08/21/16 5:42 PM) Baso Absolute [0.00-0.20] 0.04 (08/21/16 5:42 PM) Chemistry Most recent to oldest [Reference Range]: 1 Sodium Lvl [136-144 mEq/L] 137 mEq/L (08/21/16 5:42 PM) Potassium Lvl [3.6-5.1 mEq/L] 3.9 mEq/L (08/21/16 5:42 PM) Chloride [99-109 mEq/L] 103 mEq/L (08/21/16 5:42 PM) CO2 [22-32 mEq/L] 23 mEq/L (08/21/16 5:42 PM) AGAP [3-20] 11 (08/21/16 5:42 PM) BUN [4-20 mg/dL] 7 mg/dL (08/21/16 5:42 PM) Glucose Lvl [70-100 mg/dL] 98 mg/dL (08/21/16 5:42 PM) Creatinine Lvl [0.44-1.03 mg/dL] 0.80 mg/dL (08/21/16 5:42 PM) eGFR [>60] >601 (08/21/16 5:42 PM) Calcium Lvl [8.6-10.0 mg/dL] 10.0 mg/dL (08/21/16 5:42 PM) Albumin Lvl [3.5-4.8 gm/dL] 4.5 gm/dL (08/21/16 5:42 PM) Total Protein [6.1-7.9 gm/dL] 7.8 gm/dL (08/21/16 5:42 PM) Globulin [1.9-4.3 gm/dL] 3.3 gm/dL (08/21/16 5:42 PM) ALT [14-54 U/L] 23 U/L (08/21/16 5:42 PM) AST [15-41 U/L] 19 U/L (08/21/16 5:42 PM) Alk Phos [26-104 U/L] 121 U/L *HI* (08/21/16 5:42 PM) Bili Total [0.2-1.2 mg/dL] 0.7 mg/dL2 (08/21/16 5:42 PM) Lipase Lvl [8-48 U/L] 26 U/L (08/21/16 5:42 PM) Screen, Urine NPT Negative (08/21/16 6:08 PM) 1Result Comment: Multiply eGFR results by 1.21 for race.2Result Comment: Naproxen, specifically the metabolite O-desmethylnaproxen, may cause spurious elevation in Total Bilirubin levels.Urinalysis Most recent to oldest [Reference Range]: 1 UA Color Yellow (08/21/16 5:42 PM) UA Appear Cloudy *ABN* (08/21/16 5:42 PM) UA pH [5.0-8.0] 6.0 (08/21/16 5:42 PM) UA Leuk Est [Negative] Negative (08/21/16 5:42 PM) UA Nitrite [Negative] Negative (08/21/16 5:42 PM) UA Protein [Negative] Negative (08/21/16 5:42 PM) UA Glucose [Negative] Negative (1/24/17 5:42 PM) UA Ketones [Negative] Negative (08/21/16 5:42 PM) UA Urobilinogen [<1.0] Negative (08/21/16 5:42 PM) UA Bili [Negative] Negative (08/21/16 5:42 PM) UA Blood [Negative] Negative (08/21/16 5:42 PM) UA Spec Grav [1.003-1.030] 1.025 (08/21/16 5:42 PM) Type Clean Catch (08/21/16 5:42 PM) Immunizations No data available for this [...]
--- OUTSIDE RECORDS SUMMARY | 2017-02-06 12:36 | External Medical Summary | Referral Summary ---
:1990 Author Organization Via [facility] Address [address] [place] [address] Care Team Providers Name Role Phone [facility] Primary Care Physician Unavailable Encounter [facility] [id number] Date(s): 07/23/15 - 07/23/15 [facility] [address], [place] [address] Discharge Diagnosis: Dental caries Discharge Disposition: 01-Home or Self Care Attending Physician: George Link MD Admitting Physician: George Link MD Referring Physician: Self Referred, X Vital Signs Most recent to oldest [Reference Range]: 1 Temperature Oral [35.8-37.3 degC] 36.9 degC (07/23/15 10:46 PM) Peripheral Pulse Rate [60-100 bpm] 124 bpm *HI* (07/23/15 10:46 PM) Respiratory Rate [14-20 br/min] 18 br/min (07/23/15 10:46 PM) Blood Pressure [90-140/60-90 mmHg] 131/85mmHg (07/23/15 10:46 PM) SpO2 98 % (07/23/15 10:46 PM) Problem List Condition Effective Dates Status [...] OrderedBenadryl 0 Refill(s) Start Date: 07/13/15 Status: OrderedKeflex Oral, 0 Refill(s) Start Date: 06/26/15 Status: OrderedKeflex 500 mg oral capsule 500 mg 1 caps, Oral, QID, X 14 days, # 56 caps, 0 Refill(s) Start Date: 07/13/15 Stop Date: 07/27/15 Status: OrderedLevsin SL 0.125 mg sublingual tablet [...] Oral, q6hr, as needed for pain, # 8 tabs, 0 Refill(s) Start Date: 07/23/15 Stop Date: 07/24/15 Status: Orderedpenicillin V potassium 500 mg oral tablet 500 mg 1 tabs, Oral, BID, X 10 days, # 20 tabs, 0 Refill(s) Start Date: 07/23/15 Stop Date: 08/02/15 Status: OrderedRisperDAL 2 mg oral tablet 2 [...]
--- OUTSIDE RECORDS SUMMARY | 2017-02-06 12:37 | External Medical Summary | Referral Summary ---
:1990 Author Organization [facility] Address [address] [place] [address] Care Team Providers Name Role Phone [facility] Primary Care Physician Unavailable Encounter [facility] [id number] Date(s): 03/31/15 - 03/31/15 [facility] [address] [place] [address] [place] Final: UNSPECIFIED [place] UNSPECIFIED [place] Final: Suicidal ideation Discharge Disposition: -Psychiatric Facility Attending Physician: Tenzin Hemphill DO Admitting Physician: Tenzin Hemphill DO Vital Signs Most recent to oldest [Reference Range]: 1 Temperature Oral [35.8-37.3 degC] 36.5 degC (03/31/15 11:00 PM) Peripheral Pulse Rate [60-100 bpm] 83 bpm (03/31/15 11:00 PM) Heart Rate Monitored [60-100 bpm] 112 bpm *HI* (03/31/15 4:08 PM) Respiratory Rate [14-20 br/min] 16 br/min (03/31/15 11:00 PM) Blood Pressure [90-140/60-90 mmHg] 122/86mmHg (03/31/15 11:00 PM) Mean Arterial Pressure, Cuff 106 mmHg (03/31/15 4:08 PM) SpO2 96 % (03/31/15 11:00 PM) Problem List Condition Effective Dates Status [...]
--- OUTSIDE RECORDS SUMMARY | 2017-02-06 12:37 | External Medical Summary | Referral Summary ---
:1990 Author Organization [facility] Address [address] [place] [address] Care Team Providers Name Role Phone [facility] Primary Care Physician Unavailable Encounter [facility] [id number] Date(s): 09/11/15 - 09/11/15 [facility] [address] [place], [place] [address] Discharge Diagnosis: Abscess Discharge Diagnosis: Cellulitis Discharge Disposition: 01-Home or Self Care Attending Physician: George Link MD Admitting Physician: George Link MD Vital Signs Most recent to oldest [Reference Range]: 1 Temperature Oral [35.8-37.3 degC] 36.4 degC (09/11/15 4:43 PM) Peripheral Pulse Rate [60-100 bpm] 126 bpm *HI* (09/11/15 4:43 PM) Respiratory Rate [14-20 br/min] 18 br/min (09/11/15 4:43 PM) Blood Pressure [90-140/60-90 mmHg] 128/84mmHg (09/11/15 4:43 PM) SpO2 98 % (09/11/15 4:43 PM) Problem List Condition Effective Dates Status [...] 500 mg 1 caps, Oral, QID, X 10 days, # 40 caps, 0 Refill(s) Start Date: 09/11/15 Stop Date: 09/21/15 Status: OrderedNorco 10 mg-325 mg oral tablet 1 tabs, Oral, q6hr, as needed for pain, # 12 tabs, 0 Refill(s) Start Date: 09/11/15 Stop Date: 09/12/15 Status: OrderedNorco 5 mg-325 mg oral tablet [...]
--- OUTSIDE RECORDS SUMMARY | 2017-02-06 12:37 | External Medical Summary ---
:1990 Author Organization [employer] Care Team Providers Name Role Phone Leonardo Angeles Provider Role Unavailable Allergies No Known Allergies Problems No Known Problems Medications No Known Medications Results No Known Results Summary Purpose [employer] Submission
--- OUTSIDE RECORDS SUMMARY | 2017-02-06 12:37 | External Medical Summary ---
:1990 Author Organization [facility] Address [address] [place] [address] Care Team Providers Name Role Phone Leonardo Angeles Unavailable Unavailable PROBLEMS Unknown Problems ALLERGIES Unknown Allergies SOCIAL HISTORY No smoking Hx information available PLAN OF CARE VITAL SIGNS MEDICATIONS Unknown Medications RESULTS No Results PROCEDURES No Known procedures IMMUNIZATIONS No Known Immunizations
--- OUTSIDE RECORDS SUMMARY | 2017-02-06 12:37 | External Medical Summary | Referral Summary ---
:1990 Author Organization Via [facility] Address [address] [place] [address] Care Team Providers Name Role Phone [facility] Primary Care Physician Unavailable Encounter [facility] [id number] Date(s): 09/28/15 - 09/28/15 [facility] [address] [place] [address] Discharge Diagnosis: Headache Discharge Disposition: 01-Home or Self Care Attending Physician: George Link MD Admitting Physician: George Link MD Vital Signs Most recent to oldest [Reference Range]: 1 Temperature Oral [35.8-37.3 degC] 36.8 degC (09/28/15 6:21 PM) Peripheral Pulse Rate [60-100 bpm] 62 bpm (09/28/15 8:04 PM) Respiratory Rate [14-20 br/min] 16 br/min (09/28/15 8:04 PM) Blood Pressure [90-140/60-90 mmHg] 105/70mmHg (09/28/15 8:04 PM) SpO2 98 % (09/28/15 8:04 PM) Problem List Condition Effective Dates Status [...] insomnia Start Date: 03/30/15 Status: Ordered Results Chemistry Most recent to oldest [Reference Range]: 1 Sodium Venous [136-144 mEq/L] 140 mEq/L (09/28/15 7:15 PM) Potassium Venous [3.6-5.1 mEq/L] 4.0 mEq/L1 (09/28/15 7:15 PM) Calcium Ionized Venous [1.19-1.41 mmol/L] 1.20 mmol/L (09/28/15 7:15 PM) Total CO2 Venous [25-29 mEq/L] 20 mEq/L *LOW* (09/28/15 7:15 PM) HGB Venous NPT [12.0-16.0 gm/dL] 13.6 gm/dL (09/28/15 7:15 PM) HCT Venous [37.0-47.0 %] 40.0 % (09/28/15 7:15 PM) Glucose Venous [70-100 mg/dL] 122 mg/dL *HI* (09/28/15 7:15 PM) BUN Venous [4-20] 11 (09/28/15 7:15 PM) Creatinine Venous [0.4-1.0 mg/dL] 0.6 mg/dL (09/28/15 7:15 PM) Venous CL [99-109 mEq/L] 106 mEq/L (09/28/15 7:15 PM) Anion Gap, Kavin [3-20] 14 (09/28/15 7:15 PM) Screen, Urine NPT Negative (09/28/15 7:13 PM) 1Result Comment: This test was performed on a whole blood specimen. The presence or absence of hemolysis cannot be assessed. Hemolysis can falsely elevate potassium levels. Normals are for venous specimens only. Immunizations No data available for this section [...]
--- OUTSIDE RECORDS SUMMARY | 2017-02-06 12:37 | External Medical Summary | Referral Summary ---
:1990 Author Organization Via [facility] Address [address] [place] [address] Care Team Providers Name Role Phone [facility] Primary Care Physician Unavailable Encounter [facility] [id number] Date(s): 04/20/15 - 04/20/15 [facility] [address], [place] [address] Final: AFTERCARE FOLLOWING SURGERY OF THE SKIN AND SUBCUTANEOUS TISSUE, NEC Discharge Diagnosis: Encounter for wound care Discharge Disposition: 01-Home or Self Care Attending Physician: Len العلي MD Admitting Physician: Len العلي MD Vital Signs Most recent to oldest [Reference Range]: 1 Temperature Oral [35.8-37.3 degC] 37 degC (04/20/15 6:24 PM) Peripheral Pulse Rate [60-100 bpm] 104 bpm *HI* (04/20/15 7:32 PM) Respiratory Rate [14-20 br/min] 16 br/min (04/20/15 7:32 PM) Blood Pressure [90-140/60-90 mmHg] 115/71mmHg (04/20/15 7:32 PM) SpO2 98 % (04/20/15 7:32 PM) Problem List Condition Effective Dates Status [...]
--- OUTSIDE RECORDS SUMMARY | 2017-02-06 12:37 | External Medical Summary ---
:1990 Author Organization [employer] Care Team Providers Name Role Phone Leonardo Angeles Provider Role Unavailable Allergies, Adverse Reactions, Alerts Substance Reaction Event Type Sulfacet-R Cant breathe Drug Allergy Macrobid Cant Breathe Drug Allergy HydrOXYzine HCl Cant breathe Drug Allergy Problems Problem Type Condition Code Onset Dates Condition Status Assessment Left lower quadrant pain R10.32 Active Assessment Dysuria R30.0 Active Assessment Wheezing R06.2 Active Medications Medication Code Code Instructions Start End Date Status D[place] [address]-49 1 MG/ML Orally 1 ml 63-44 Once a day ProAir HFA [facility] 89076-14 108 (90 Base) November 24, 2 puffs as 51-85 MCG/ACT 2015 needed Inhalation every 4 hrs prn Seroquel NDC 18399-37 200 MG Orally 1 tablet 72-10 Once a day at bedtime Benadryl NDC 10947-80 25 MG Orally 1 tablet 09-99 every 6 hrs as needed Gabapentin NDC 06499-03 100 MG Orally not 92-01 Three times a defined day Ciprofloxacin HCl NDC 20447-71 500 MG Orally November 24, November 06, 1 tablet 37-01 Twice a day 2015 [place] [address]-12 5-325 MG Orally 1 tablet 13-01 every 6 hrs as needed Procedures Procedure Coding System Code Date URINE TEST CPT-4 63056 November 25, 2015 URINE CULTURE/COLONY COUNT CPT-4 31086 November 25, 2015 URINALYSIS, AUTO, W/O SCOPE CPT-4 15544 November 25, 2015 Office Visit, Est Pt., Level 3 CPT-4 05957 November 25, 2015 URINE BACTERIA CULTURE CPT-4 47225 November 25, 2015 Vital Signs Date/Time: November 25, 2015 BMI 41.12 Index Weight 239.6 lbs Height 64 in Blood Pressure Diastolic 104 mm Hg Blood Pressure Systolic 144 mm Hg Temperature 98.9 F Cardiac Monitoring Heart Rate 99 /min Results Name Result Date Reference Range Unit Abnormality Flag CULTURE, URINE, ROUTINE ----CULTURE, URINE, ROUTINE SEE NOTE [id number] A Summary Purpose [facility] Sub[facility]
--- OUTSIDE RECORDS SUMMARY | 2017-02-06 12:37 | External Medical Summary ---
:1991 Author Organization [facility] Address [address] [place] [address] Phone [phone] Care Team Providers Name Role Phone Penny Olvera Unavailable Unavailable PROBLEMS Unknown Problems ALLERGIES Substance Reaction Event Type Date Status Sulfacet-R Cant breathe Drug Allergy Dec, Active Macrobid Cant Breathe Drug Allergy Dec, Active HydrOXYzine HCl Cant breathe Drug Allergy Dec, Active SOCIAL HISTORY No smoking Hx information available PLAN OF CARE Activity Details Follow Up 1 year for [facility] Reason:null Pending Test THINPREP-TIS W/RFL HPV (EDW or INS) VITAL SIGNS Height 64 in 2017-01-24 Weight 196.2 lbs 2017-01-24 BMI 33.67 kg/m2 2017-01-24 Heart Rate 88 /min 2017-01-24 Temperature 97.9 degrees Fahrenheit 2017-01-24 Blood pressure systolic 119 mm Hg 2017-01-24 Blood pressure diastolic 77 mm Hg 2017-01-24 MEDICATIONS Medication Instructions Dosage Frequency Start End Date Duration Status Date Naproxen 500 MG Orally every 12 1 tablet 12h Active hrs as needed Risperidone 1 MG Orally Once a 1 tablet 24h Active day RESULTS Name Result Date Reference Range Urinalysis (UA) (GM) 2017-01-24 COLOR yellow CLARITY clear GLU neg MORA neg KET neg SG 1.020 BLO neg pH 6.0 PRO neg URO 0.2 NIT neg RAHEEM neg Urine Test (GM) 2017-01-24 Negative neg Positive PROCEDURES Procedure Date Ordered Related Diagnosis Body Site CHYLMD TRACH, DNA, AMP PROBE January 24, 2017 N.GONORRHOEAE, DNA, AMP PROB January 24, 2017 Preventive Care Est. Pt. Age 18 -39 January 24, 2017 CYTOPATH C/V AUTO FLUID REDO (tc CYIM1) January 24, 2017 ASSAY THYROID STIM HORMONE January 24, 2017 URINE TEST January 24, 2017 POE VAG, DNA, DIR PROBE January 24, 2017 URINALYSIS, AUTO, W/O SCOPE January 24, 2017 ASSAY OF PROLACTIN January 24, 2017 GONADOTROPIN (FSH) January 24, 2017 TRICHOMONAS VAGIN, DIR PROBE January 24, 2017 MENDY, DNA, DIR PROBE January 24, 2017 IMMUNIZATIONS No Known Immunizations
--- OUTSIDE RECORDS SUMMARY | 2017-02-06 12:37 | External Medical Summary | Referral Summary ---
:1990 Author Organization Via [facility] Address [address] [place] [address] Care Team Providers Name Role Phone [facility] Primary Care Physician Unavailable Encounter [facility] [id number] Date(s): 05/03/15 - 05/03/15 [facility] [address] [place] [address] [place] Discharge Diagnosis: Abdominal pain Discharge Disposition: 01-Home or Self Care Attending Physician: Anjum Gomez MD Admitting Physician: Len العلي MD Vital Signs Most recent to oldest [Reference Range]: 1 Temperature Oral [35.8-37.3 degC] 37.0 degC (05/03/15 10:23 PM) Peripheral Pulse Rate [60-100 bpm] 75 bpm (05/03/15 10:23 PM) Respiratory Rate [14-20 br/min] 17 br/min (05/03/15 10:23 PM) Blood Pressure [90-140/60-90 mmHg] 125/89mmHg (05/03/15 10:23 PM) SpO2 100 % (05/03/15 10:23 PM) Problem List Condition Effective Dates Status [...] TID, 0 Refill(s) Start Date: 03/30/15 Status: Ordereddoxycycline monohydrate 100 mg oral tablet 100 mg 1 tabs, Oral, BID, 0 Refill(s) Start Date: 03/30/15 Status: OrderedLevsin SL 0.125 mg sublingual tablet 0.125 mg 1 tabs, SubLingual, q4hr, Abdominal Cramping, per protocol Dr. Yasmany Goetz, # 12 tabs, 0 Refill(s) Start Date: 05/03/15 Status: OrderedRisperDAL 2 mg oral tablet 2 mg 1 tabs, Oral, BID, 0 Refill(s), Indication: psychosis Start Date: 03/30/15 Status: OrderedRisperDAL Consta 25 mg 2 mL, IntraMuscular, q2wk, 0 Refill(s) Start Date: 03/30/15 Status: OrderedSenokot S 50 mg-8.6 mg oral tablet 2 tabs, Oral, Bedtime (once a day), 0 Refill(s) Start Date: 03/30/15 Status: OrderedSEROquel 50 mg oral tablet 50 mg 1 tabs, Oral, Bedtime (once a day), Sleep, 0 Refill(s), Indication: insomnia Start Date: 03/30/15 Status: Ordered Results Hematology Most recent to oldest [Reference Range]: 1 WBC [4.8-10.8 10*3/uL] 8.7 10*3/uL (05/03/15 8:21 PM) RBC [4.00-5.20] 4.91 (05/03/15 8:21 PM) Hgb [12.0-16.0 gm/dL] 12.9 gm/dL (05/03/15 8:21 PM) Hct [37.0-47.0 %] 39.1 % (05/03/15 8:21 PM) MCV [82.0-99.0 fL] 79.6 fL *LOW* (05/03/15 8:21 PM) MCH [27.0-32.0 pg] 26.3 pg *LOW* (05/03/15 8:21 PM) MCHC [32.0-36.0 gm/dL] 33.0 gm/dL (05/03/15 8:21 PM) RDW [11.5-14.5 %] 15.1 % *HI* (05/03/15 8:21 PM) Platelet [150-400 10*3/uL] 348 10*3/uL (05/03/15 8:21 PM) MPV [9.4-12.4 fL] 10.3 fL (05/03/15 8:21 PM) Immature Granulocytes [0.0-1.0 %] 0.3 % (05/03/15 8:21 PM) Neutrophils [51-75 %] 44 % *LOW* (05/03/15 8:21 PM) Lymphocytes [20-46 %] 42 % (05/03/15 8:21 PM) Monocytes [4-11 %] 10 % (05/03/15 8:21 PM) Eosinophils [0-4 %] 4 % (05/03/15 8:21 PM) Basophils [0-2 %] 1 % (05/03/15 8:21 PM) Neutro Absolute [1.90-7.00 10*3] 3.81 10*3 (05/03/15 8:21 PM) Lymph Absolute [0.80-3.30 10*3] 3.66 10*3 *HI* (05/03/15 8:21 PM) [place] Absolute [0.30-1.00 10*3] 0.87 10*3 (05/03/15 8:21 PM) Eos Absolute [0.00-0.50 10*3] 0.31 10*3 (05/03/15 8:21 PM) Baso Absolute [0.00-0.20 10*3] 0.06 10*3 (05/03/15 8:21 PM) Chemistry Most recent to oldest [Reference Range]: 1 Sodium Lvl [136-144 mEq/L] 138 mEq/L (05/03/15 8:21 PM) Potassium Lvl [3.6-5.1 mEq/L] 4.2 mEq/L1 (05/03/15 8:21 PM) Chloride [99-109 mEq/L] 105 mEq/L (05/03/15 8:21 PM) CO2 [22-32 mEq/L] 26 mEq/L (05/03/15 8:21 PM) AGAP [3-20] 7 (05/03/15 8:21 PM) BUN [4-20 mg/dL] 7 mg/dL (05/03/15 8:21 PM) Glucose Lvl [70-100 mg/dL] 89 mg/dL (05/03/15 8:21 PM) Creatinine Lvl [0.44-1.03 mg/dL] 0.65 mg/dL (05/03/15 8:21 PM) eGFR [>60] >602 (05/03/15 8:21 PM) Calcium Lvl [8.6-10.0 mg/dL] 9.5 mg/dL (05/03/15 8:21 PM) Albumin Lvl [3.5-4.8 gm/dL] 3.8 gm/dL (05/03/15 8:21 PM) Total Protein [6.1-7.9 gm/dL] 6.5 gm/dL (05/03/15 8:21 PM) Globulin [1.9-4.3 gm/dL] 2.7 gm/dL (05/03/15 8:21 PM) ALT [14-54 U/L] 49 U/L (05/03/15 8:21 PM) AST [15-41 U/L] 34 U/L (05/03/15 8:21 PM) Alk Phos [26-104 U/L] 67 U/L (05/03/15 8:21 PM) Bili Total [0.2-1.2 mg/dL] 0.7 mg/dL3 (05/03/15 8:21 PM) Lipase Lvl [8-48 U/L] 28 U/L (05/03/15 8:21 PM) Screen, Urine NPT Negative (05/03/15 8:26 PM) 1Result Comment: Hemolyzed specimen. The following tests may be affected: ALT, AST, Ammonia, Iron, Potassium, LDH, Amylase, CPK, and Total Bilirubin.2Result Comment : Multiply eGFR results by 1.21 for race.3Result Comment: Naproxen, specifically the metabolite O-desmethylnaproxen, may cause spurious elevation in Total Bilirubin levels.Urinalysis Most recent to oldest [Reference Range]: 1 UA Color Lt Yellow (05/03/15 8:21 PM) UA Appear Clear (05/03/15 8:21 PM) UA pH [5.0-8.0] 7.0 (05/03/15 8:21 PM) UA Leuk Est [Negative] Negative (05/03/15 8:21 PM) UA Nitrite [Negative] Negative (05/03/15 8:21 PM) UA Protein [Negative] Negative (05/03/15 8:21 PM) UA Glucose [Negative] Negative (05/03/15 8:21 PM) UA Ketones [Negative] Negative (05/03/15 8:21 PM) UA Urobilinogen [<1.0] Negative (05/03/15 8:21 PM) UA Bili [Negative] Negative (05/03/15 8:21 PM) UA Blood [Negative] Trace *ABN* (05/03/15 8:21 PM) UA Spec Grav [1.003-1.030] 1.006 (05/03/15 8:21 PM) Type Clean Catch (05/03/15 8:21 PM) UA WBC [0-4] 0-2 (05/03/15 8:21 PM) UA RBC [0-2] None seen (05/03/15 8:21 PM) Epithelial Cells 0-2 (05/03/15 8:21 PM) UA Bacteria Occasional *ABN* (05/03/15 8:21 PM) Microbiology Reports TEST:Affirm Vaginitis Panel STATUS:Auth (Verified) BODY SITE: SOURCE:Cervix/Vaginal COLLECTED DATE/TIME:05/03/15 8:20 PMAffirm Vaginitis PanelNegative for Trichomonas vaginalis Negative [...]
--- OUTSIDE RECORDS SUMMARY | 2017-02-06 12:37 | External Medical Summary | Referral Summary ---
:1990 Author Organization Via [facility] Address [address] [place] [address] Care Team Providers Name Role Phone [facility] Primary Care Physician Unavailable Encounter [facility] [id number] Date(s): 01/29/16 - 01/29/16 [facility] [address] [place] [address] Discharge Diagnosis: Dysuria Discharge Diagnosis: Diarrhea Discharge Disposition: 01-Home or Self Care Attending Physician: Antonio Aguilar MD Admitting Physician: Antonio Aguilar MD Vital Signs Most recent to oldest [Reference Range]: 1 Temperature Oral [35.8-37.3 degC] 37.0 degC (01/29/16 8:39 PM) Peripheral Pulse Rate [60-100 bpm] 98 bpm (01/29/16 10:32 PM) Respiratory Rate [14-20 br/min] 18 br/min (01/29/16 8:39 PM) Blood Pressure [90-140/60-90 mmHg] 131/95mmHg (01/29/16 8:39 PM) SpO2 97 % (01/29/16 8:39 PM) Problem List Condition Effective Dates Status [...] Most recent to oldest [Reference Range]: 1 Screen, Urine NPT Negative (01/29/16 9:02 PM) Urinalysis Most recent to oldest [Reference Range]: 1 UA Color Straw (01/29/16 9:11 PM) UA Appear Clear (01/29/16 9:11 PM) UA pH [5.0-8.0] 6.0 (01/29/16 9:11 PM) UA Leuk Est [Negative] Negative (01/29/16 9:11 PM) UA Nitrite [Negative] Negative (01/29/16 9:11 PM) UA Protein [Negative] Negative (01/29/16 9:11 PM) UA Glucose [Negative] Negative (01/29/16 9:11 PM) UA Ketones [Negative] Negative (01/29/16 9:11 PM) UA Urobilinogen [<1.0] Negative (01/29/16 9:11 PM) UA Bili [Negative] Negative (01/29/16 9:11 PM) UA Blood [Negative] Negative (01/29/16 9:11 PM) UA Spec Grav [1.003-1.030] 1.010 (01/29/16 9:11 PM) Type Clean Catch (01/29/16 9:11 PM) Immunizations No data available for this [...]
--- OUTSIDE RECORDS SUMMARY | 2017-02-06 12:37 | External Medical Summary ---
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 Medications Medication Code System Code Instructions Start Date End Date Status Dosage Tylenol NDC 0 Oral 1 tab Risperidone NDC 82843-940 1 MG/ML Orally 1 ml 3-44 Once a day Seroquel NDC 18749-622 200 MG Orally 1 tablet at 2-10 Once a day bedtime Procedures Procedure Coding System Code Date Office Visit, Est Pt., Level 3 CPT-4 20458 Apr 28, 2015 Vital Signs Date/Time: Apr 28, 2015 BMI 35.60 Index Weight 207.4 lbs Height 64.0 in Blood Pressure Diastolic 84 mm Hg Blood Pressure Systolic 121 mm Hg Temperature 98.4 F Cardiac Monitoring Heart Rate 100 /min Results No Known Results Summary Purpose [employer] Submission
--- OUTSIDE RECORDS SUMMARY | 2017-02-06 12:37 | External Medical Summary | Referral Summary ---
:1991 Author Organization Via Address [address] [place] [address] Care Team Providers Name Role Phone [facility] Primary Care Physician Unavailable Encounter [facility] [id number] Date(s): 12/03/15 - 12/04/[address] [place] [address] Discharge Diagnosis: Abdominal pain Discharge Diagnosis: Bacterial UTI Discharge Diagnosis: D (diarrhea) Discharge Disposition: 01-Home or Self Care Attending Physician: George Link MD Admitting Physician: George Link MD Vital Signs Most recent to oldest [Reference Range]: 1 Temperature Oral [35.8-37.3 degC] 37 degC (12/03/15 10:44 PM) Peripheral Pulse Rate [60-100 bpm] 91 bpm (12/04/15 2:31 AM) Heart Rate Monitored [60-100 bpm] 77 bpm (12/04/15 1:57 AM) Respiratory Rate [14-20 br/min] 18 br/min (12/03/15 10:44 PM) Blood Pressure [90-140/60-90 mmHg] 124/70mmHg (12/04/15 2:31 AM) Mean Arterial Pressure, Cuff 86 mmHg (12/04/15 1:57 AM) SpO2 98 % (12/04/15 2:31 AM) Problem List Condition Effective Dates Status Health [...] Benadryl 0 Refill(s) Start Date: 07/13/15 Status: Orderedcephalexin 500 mg oral tablet 500 mg 1 tabs, Oral, QID, X 7 days, # 28 tabs, 0 Refill(s) Start Date: 12/04/15 Stop Date: 12/11/15 Status: OrderedCrutches (DME) DME Item crutches, ankle/knee [...] oldest [Reference Range]: 1 WBC [4.8-10.8 10*3/uL] 10.6 10*3/uL (12/04/15 1:22 AM) RBC [4.00-5.20] 5.20 (12/04/15 1:22 AM) Hgb [12.0-16.0 gm/dL] 14.2 gm/dL (12/04/15 1:22 AM) Hct [37.0-47.0 %] 42.5 % (12/04/15 1:22 AM) MCV [82.0-99.0 fL] 81.7 fL *LOW* (12/04/15: AM) MCH [27.0-32.0 pg] 27.3 pg (12/04/15:22 AM) MCHC [32.0-36.0 gm/dL] 33.4 gm/dL (12/04/15 1:22 AM) RDW [11.5-14.5 %] 14.9 % *HI* (12/04/15 1:22 AM) Platelet [150-400 10*3/uL] 308 10*3/uL (12/04/15 1:22 AM) MPV [9.4-12.4 fL] 10.0 fL (12/04/15 1:22 AM) Immature Granulocytes [0.0-1.0 %] 0.5 % (12/04/15 1:22 AM) Neutrophils [51-75 %] 52 % (12/04/15 1:22 AM) Lymphocytes [20-46 %] 34 % (12/04/15 1:22 AM) Monocytes [4-11 %] 11 % (12/04/15 1:22 AM) Eosinophils [0-4 %] 2 % (12/04/15 1:22 AM) Basophils [0-2 %] 0 % (12/04/15 1:22 AM) Neutro Absolute [1.90-7.00 10*3] 5.47 10*3 (12/04/15 1:22 AM) Lymph Absolute [0.80-3.30 10*3] 3.62 10*3 *HI* (12/04/15 1:22 AM) [place] Absolute [0.30-1.00 10*3] 1.16 10*3 *HI* (12/04/15 1:22 AM) Eos Absolute [0.00-0.50 10*3] 0.22 10*3 (12/04/15 1:22 AM) Baso Absolute [0.00-0.20 10*3] 0.03 10*3 (12/04/15 1:22 AM) Nucleated RBC Automated [0 /100 WBC] 0.0 /100 WBC (12/04/15 1:22 AM) Chemistry Most recent to oldest [Reference Range]: 1 Sodium Lvl [136-144 mEq/L] 137 mEq/L (12/04/15 1:22 AM) Potassium Lvl [3.6-5.1 mEq/L] 3.7 mEq/L (12/04/15 1: AM) Chloride [99-109 mEq/L] 105 mEq/L (12/04/15 1: AM) CO2 [22-32 mEq/L] 25 mEq/L (12/04/15 1:22 AM) AGAP [3-20] 7 (12/04/15 1:22 AM) BUN [4-20 mg/dL] 7 mg/dL (12/04/15 1:22 AM) Glucose Lvl [70-100 mg/dL] 90 mg/dL (12/04/15 1:22 AM) Creatinine Lvl [0.44-1.03 mg/dL] 0.76 mg/dL (12/04/15 1:22 AM) eGFR [>60] >601 (12/04/15 1:22 AM) Calcium Lvl [8.6-10.0 mg/dL] 9.5 mg/dL (12/04/15 1:22 AM) Lipase Lvl [8-48 U/L] 20 U/L (12/04/15 1:22 AM) U Beta hCG Ql Neg (12/04/15 1:32 AM) 1Result Comment: Multiply eGFR results by 1.21 for race.Urinalysis Most recent to oldest [Reference Range]: 1 UA Color Yellow (12/04/15 1:22 AM) UA Appear Cloudy *ABN* (12/04/15 1:22 AM) UA pH [5.0-8.0] 6.0 (12/04/15 1:22 AM) UA Leuk Est [Negative] Negative (12/04/15 1:22 AM) UA Nitrite [Negative] Negative (12/04/15 1:22 AM) UA Protein [Negative] Pos 1+ *ABN* (12/04/15 1:22 AM) UA Glucose [Negative] Negative (12/04/15 1:22 AM) UA Ketones [Negative] Trace *ABN* (12/04/15 1:22 AM) UA Urobilinogen [<1.0 mg/dL] 2.0 mg/dL *ABN* (12/04/15 1:22 AM) UA Bili [Negative] Negative (12/04/15 1:22 AM) UA Blood [Negative] Negative (12/04/15 1:22 AM) UA Spec Grav [1.003-1.030] 1.030 (12/04/15 1:22 AM) Type Clean Catch (12/04/15 1:22 AM) UA WBC [0-4] 0-2 (12/04/15 1:22 AM) Epithelial Cells 20-50 (12/04/15 1:22 AM) UA Bacteria Moderate *ABN* (12/04/15 1:22 AM) UA Mucous Present (12/04/15 1:22 AM) Immunizations No data available for this section [...]
--- OUTSIDE RECORDS SUMMARY | 2017-02-06 12:37 | External Medical Summary | Referral Summary ---
:1991 Author Organization Via [facility] Address [address] [place] [address] Care Team Providers Name Role Phone [facility] Primary Care Physician Unavailable Encounter [facility] [id number] Date(s): 01/09/16 - 01/09/16 [facility] [address] [place] [address] Discharge Diagnosis: Pain due to dental caries Discharge Disposition: 01-Home or Self Care Attending Physician: Anjum Gomez MD Admitting Physician: Anjum Gomez MD Vital Signs Most recent to oldest [Reference Range]: 1 Temperature Oral [35.8-37.3 degC] 36.7 degC (01/09/16 9:17 PM) Peripheral Pulse Rate [60-100 bpm] 94 bpm (01/09/16 10:28 PM) Respiratory Rate [14-20 br/min] 18 br/min (01/09/16 10:28 PM) Blood Pressure [90-140/60-90 mmHg] 130/86mmHg (01/09/16 10:28 PM) SpO2 95 % (01/09/16 10:28 PM) Problem List Condition Effective Dates Status [...] 500 mg 1 tabs, Oral, QID, X 14 days, # 56 tabs, 0 Refill(s) Start Date: 01/09/16 Stop Date: 01/23/16 Status: OrderedRisperDAL 2 mg oral tablet 2 [...]
--- OUTSIDE RECORDS SUMMARY | 2017-02-06 12:37 | External Medical Summary | Referral Summary ---
:1990 Author Organization [facility] Address [address] [place] [address] Care Team Providers Name Role Phone [facility], The Primary Care Physician Unavailable Encounter [facility] [id number] Date(s): 04/08/16 - 04/08/16 [facility] [address] [place] [address] Discharge Diagnosis: Depression Discharge Diagnosis: Methamphetamine abuse Discharge Diagnosis: Paranoid schizophrenia Discharge Disposition: 01-Home or Self Care Attending Physician: Godwin Mart MD Admitting Physician: Godwin Mart MD Vital Signs Most recent to oldest [Reference Range]: 1 Temperature Oral [35.8-37.3 degC] 36.8 degC (04/08/16 12:00 PM) Peripheral Pulse Rate [60-100 bpm] 109 bpm *HI* (04/08/16 12:00 PM) Heart Rate Monitored [60-100 bpm] 74 bpm (04/08/16 2:00 PM) Respiratory Rate [14-20 br/min] 18 br/min (04/08/16 12:00 PM) Blood Pressure [90-140/60-90 mmHg] 111/94mmHg (04/08/16 2:00 PM) Mean Arterial Pressure, Cuff 103 mmHg (04/08/16 2:00 PM) SpO2 95 % (04/08/16 2:00 PM) Problem List Condition Effective Dates Status [...] ANXIETY Start Date: 03/09/16 Status: Ordered Results Hematology Most recent to oldest [Reference Range]: 1 WBC [4.8-10.8 10*3/uL] 12.6 10*3/uL *HI* (04/08/16 5:55 AM) RBC [4.00-5.20] 5.51 *HI* (04/08/16 5:55 AM) Hgb [12.0-16.0 gm/dL] 14.5 gm/dL (04/08/16 5:55 AM) Hct [37.0-47.0 %] 43.6 % (04/08/16 5:55 AM) MCV [82.0-99.0 fL] 79.1 fL *LOW* (04/08/16 5:55 AM) MCH [27.0-32.0 pg] 26.3 pg *LOW* (04/08/16 5:55 AM) MCHC [32.0-36.0 gm/dL] 33.3 gm/dL (04/08/16 5:55 AM) RDW [11.5-14.5 %] 14.9 % *HI* (04/08/16 5:55 AM) Platelet [150-400 10*3/uL] 341 10*3/uL (04/08/16 5:55 AM) MPV [9.4-12.4 fL] 10.1 fL (04/08/16 5:55 AM) Immature Granulocytes [0.0-1.0 %] 0.2 % (04/08/16 5:55 AM) Neutrophils [51-75 %] 82 % *HI* (04/08/16 5:55 AM) Lymphocytes [20-46 %] 12 % *LOW* (04/08/16 5:55 AM) Monocytes [4-11 %] 5 % (04/08/16 5:55 AM) Eosinophils [0-4 %] 0 % (04/08/16 5:55 AM) Basophils [0-2 %] 0 % (04/08/16 5:55 AM) Neutro Absolute [1.90-7.00 10*3] 10.38 10*3 *HI* (04/08/16 5:55 AM) Lymph Absolute [0.80-3.30 10*3] 1.53 10*3 (04/08/16 5:55 AM) [place] Absolute [0.30-1.00 10*3] 0.65 10*3 (04/08/16 5:55 AM) Eos Absolute [0.00-0.50 10*3] 0.01 10*3 (04/08/16 5:55 AM) Baso Absolute [0.00-0.20 10*3] 0.02 10*3 (04/08/16 5:55 AM) Microcyte Present *ABN* (04/08/16 5:55 AM) Differential Scanned Slide (04/08/16 5:55 AM) Chemistry Most recent to oldest [Reference Range]: 1 Sodium Lvl [136-144 mEq/L] 136 mEq/L (04/08/16 5:55 AM) Potassium Lvl [3.6-5.1 mEq/L] 3.6 mEq/L (04/08/16 5:55 AM) Chloride [99-109 mEq/L] 102 mEq/L (04/08/16 5:55 AM) CO2 [22-32 mEq/L] 20 mEq/L *LOW* (04/08/16 5:55 AM) AGAP [3-20] 14 (04/08/16 5:55 AM) BUN [4-20 mg/dL] 7 mg/dL (04/08/16 5:55 AM) Glucose Lvl [70-100 mg/dL] 150 mg/dL *HI* (04/08/16 5:55 AM) Creatinine Lvl [0.44-1.03 mg/dL] 0.95 mg/dL (04/08/16 5:55 AM) eGFR [>60] >601 (04/08/16 5:55 AM) Calcium Lvl [8.6-10.0 mg/dL] 9.9 mg/dL (04/08/16 5:55 AM) Albumin Lvl [3.5-4.8 gm/dL] 4.3 gm/dL (04/08/16 5:55 AM) Total Protein [6.1-7.9 gm/dL] 7.5 gm/dL (04/08/16 5:55 AM) Globulin [1.9-4.3 gm/dL] 3.2 gm/dL (04/08/16 5:55 AM) ALT [14-54 U/L] 20 U/L (04/08/16 5:55 AM) AST [15-41 U/L] 18 U/L (04/08/16 5:55 AM) Alk Phos [26-104 U/L] 110 U/L *HI* (04/08/16 5:55 AM) Bili Total [0.2-1.2 mg/dL] 0.8 mg/dL2 (04/08/16 5:55 AM) Total CK [38-234 U/L] 123 U/L (04/08/16 5:55 AM) Troponin [<0.06 ng/mL] <0.05 ng/mL (04/08/16 5:55 AM) 1Result Comment: Multiply eGFR results by 1.21 for race.2Result Comment: Naproxen, specifically the metabolite O-desmethylnaproxen, may cause spurious elevation in Total Bilirubin levels.Therapeutic Drug Monitoring Most recent to oldest [Reference Range]: 1 Acetaminophen Lvl [10-30 ug/mL] <10 ug/mL (04/08/16 5:55 AM) Salicylate Lvl [0-30 mg/dL] <4 mg/dL (04/08/16 5:55 AM) Toxicology Most recent to oldest [Reference Range]: 1 Ethanol Lvl Not Detected (04/08/16 5:55 AM) U Amphetamine Scrn Positive *ABN* (04/08/16 6:18 AM) U Cocaine Scrn Negative (04/08/16 6:18 AM) U Cannab Scrn Negative (04/08/16 6:18 AM) U Opiate Scrn Positive *ABN* (04/08/16 6:18 AM) U PCP Scrn Negative (04/08/16 6:18 AM) U Benzodiazepine Scrn Positive *ABN* (04/08/16 6:18 AM) U Barbiturate Scrn Negative (04/08/16 6:18 AM) Methadone Lvl Negative (04/08/16 6:18 AM) Tricyclics Negative1 (04/08/16 6:18 AM) 1Result Comment: Cut-off concentrations: Amphetamines: 1000 ng/mL [...] oldest [Reference Range]: 1 UA Color Yellow (04/08/16 6:18 AM) UA Appear Sl Cloudy (04/08/16 6:18 AM) UA pH [5.0-8.0] 6.0 (04/08/16 6:18 AM) UA Leuk Est [Negative] Negative (04/08/16 6:18 AM) UA Nitrite [Negative] Negative (04/08/16 6:18 AM) UA Protein [Negative] Negative (04/08/16 6:18 AM) UA Glucose [Negative] Negative (04/08/16 6:18 AM) UA Ketones [Negative] Pos 1+ *ABN* (04/08/16 6:18 AM) UA Urobilinogen [<1.0] Negative (04/08/16 6:18 AM) UA Bili [Negative] Negative (04/08/16 6:18 AM) UA Blood [Negative] Pos 2+ *ABN* (04/08/16 6:18 AM) UA Spec Grav [1.003-1.030] 1.010 (04/08/16 6:18 AM) Type Clean Catch (04/08/16 6:18 AM) UA WBC [0-4] 0-2 (04/08/16 6:18 AM) UA RBC [0-2] 0-2 (04/08/16 6:18 AM) Epithelial Cells 2-5 (04/08/16 6:18 AM) UA Bacteria Rare (04/08/16 6:18 AM) Immunizations No data available for this [...]
--- OUTSIDE RECORDS SUMMARY | 2017-02-06 12:37 | External Medical Summary | Referral Summary ---
:1990 Author Organization [facility] Address [address] [place] [address] Care Team Providers Name Role Phone [facility], The Primary Care Physician Unavailable Encounter [facility] [id number] Date(s): 05/03/15 - 05/03/15 [facility] [address] [place] [address]- Discharge Diagnosis: Abdominal pain Final: Unspecified abdominal pain Discharge Disposition: 01-Home or Self Care [...] 10*3] 3.66 10*3 *HI* (05/03/15 8:21 PM) [place] Absolute [0.30-1.00 10*3] 0.87 10*3 (05/03/15 8:21 [...]
--- OUTSIDE RECORDS SUMMARY | 2017-02-06 12:38 | External Medical Summary | Referral Summary ---
:1990 Author Organization [facility] Address [address] [place] [address] Care Team Providers Name Role Phone [facility], The Primary Care Physician Unavailable Encounter [facility] [id number] Date(s): 02/17/16 - 02/17/16 [facility] [address], [place] [address] Discharge Diagnosis: Frequency Discharge Diagnosis: Migraine Discharge Disposition: 01-Home or Self Care Attending Physician: George Link MD Admitting Physician: George Link MD Vital Signs Most recent to oldest [Reference Range]: 1 Temperature Oral [35.8-37.3 degC] 36.8 degC (02/17/16 8:13 PM) Peripheral Pulse Rate [60-100 bpm] 84 bpm (02/17/16 9:46 PM) Respiratory Rate [14-20 br/min] 12 br/min *LOW* (02/17/16 9:46 PM) Blood Pressure [90-140/60-90 mmHg] 112/70mmHg (02/17/16 9:46 PM) SpO2 97 % (02/17/16 9:46 PM) Problem List Condition Effective Dates Status [...] 0 Refill(s), Supply Start Date: 08/15/15 Status: Orderedgabapentin Oral, 0 Refill(s) Start Date: 02/17/16 Status: OrderedHibiclens 4% topical soap 1 govind, [...] [Reference Range]: 1 Screen, Urine NPT Negative (02/17/16 8:42 PM) Urinalysis Most recent to oldest [Reference Range]: 1 UA Color Yellow (02/17/16 8:38 PM) UA Appear Sl Cloudy (02/17/16 8:38 PM) UA pH [5.0-8.0] 6.0 (02/17/16 8:38 PM) UA Leuk Est [Negative] Negative (02/17/16 8:38 PM) UA Nitrite [Negative] Negative (02/17/16 8:38 PM) UA Protein [Negative] Negative (02/17/16 8:38 PM) UA Glucose [Negative] Negative (02/17/16 8:38 PM) UA Ketones [Negative] Trace *ABN* (02/17/16 8:38 PM) UA Urobilinogen [<1.0] Negative (02/17/16 8:38 PM) UA Bili [Negative] Negative (02/17/16 8:38 PM) UA Blood [Negative] Negative (02/17/16 8:38 PM) UA Spec Grav [1.003-1.030] 1.020 (02/17/16 8:38 PM) Type Clean Catch (02/17/16 8:38 PM) Immunizations No data available for this [...]
--- OUTSIDE RECORDS SUMMARY | 2017-02-06 12:38 | External Medical Summary | Referral Summary ---
:1990 Author Organization [facility] Address [address] [place] [address] Care Team Providers Name Role Phone [facility], The Primary Care Physician Unavailable Encounter [facility] [id number] Date(s): 07/01/16 - 07/01/16 [facility] [address], [place] [address] Discharge Diagnosis: Methamphetamine abuse Discharge Disposition: 01-Home or Self Care Attending Physician: George Link MD Admitting Physician: George Link MD Vital Signs Most recent to oldest [Reference Range]: 1 Temperature Oral [35.8-37.3 degC] 36.9 degC (07/01/16 2:13 AM) Peripheral Pulse Rate [60-100 bpm] 83 bpm (07/01/16 9:36 AM) Heart Rate Monitored [60-100 bpm] 82 bpm (07/01/16 8:00 AM) Respiratory Rate [14-20 br/min] 18 br/min (07/01/16 9:36 AM) Blood Pressure [90-140/60-90 mmHg] 104/71mmHg (07/01/16 9:36 AM) Mean Arterial Pressure, Cuff 68 mmHg (07/01/16 8:00 AM) SpO2 97 % (07/01/16 9:36 AM) Problem List Condition Effective Dates Status [...] oldest [Reference Range]: 1 WBC [4.8-10.8 10*3/uL] 13.1 10*3/uL *HI* (07/01/16 3:16 AM) RBC [4.00-5.20] 5.40 *HI* (07/01/16 3:16 AM) Hgb [12.0-16.0 gm/dL] 14.6 gm/dL (07/01/16 3:16 AM) Hct [37.0-47.0 %] 43.6 % (07/01/16 3:16 AM) MCV [82.0-99.0 fL] 80.7 fL *LOW* (07/01/16 3:16 AM) MCH [27.0-32.0 pg] 27.0 pg (07/01/16 3:16 AM) MCHC [32.0-36.0 gm/dL] 33.5 gm/dL (07/01/16 3:16 AM) RDW [11.5-14.5 %] 14.5 % (07/01/16 3:16 AM) Platelet [150-400 10*3/uL] 249 10*3/uL (07/01/16 3:16 AM) MPV [9.4-12.4 fL] 10.7 fL (07/01/16 3:16 AM) Immature Granulocytes [0.0-1.0 %] 0.6 % (07/01/16 3:16 AM) Neutrophils [51-75 %] 66 % (07/01/16 3:16 AM) Lymphocytes [20-46 %] 22 % (07/01/16 3:16 AM) Monocytes [4-11 %] 9 % (07/01/16 3:16 AM) Eosinophils [0-4 %] 2 % (07/01/16 3:16 AM) Basophils [0-2 %] 1 % (07/01/16 3:16 AM) Neutro Absolute [1.90-7.00 10*3] 8.66 10*3 *HI* (07/01/16 3:16 AM) Lymph Absolute [0.80-3.30 10*3] 2.93 10*3 (07/01/16 3:16 AM) [place] Absolute [0.30-1.00 10*3] 1.18 10*3 *HI* (07/01/16 3:16 AM) Eos Absolute [0.00-0.50 10*3] 0.19 10*3 (07/01/16 3:16 AM) Baso Absolute [0.00-0.20 10*3] 0.06 10*3 (07/01/16 3:16 AM) Nucleated RBC Automated [0 /100 WBC] 0.0 /100 WBC (07/01/16 3:16 AM) Differential Scanned Slide (07/01/16 3:16 AM) Chemistry Most recent to oldest [Reference Range]: 1 Sodium Lvl [136-144 mEq/L] 140 mEq/L (07/01/16 3:16 AM) Potassium Lvl [3.6-5.1 mEq/L] 3.5 mEq/L *LOW* (07/01/16 3:16 AM) Chloride [99-109 mEq/L] 106 mEq/L (07/01/16 3:16 AM) CO2 [22-32 mEq/L] 24 mEq/L (07/01/16 3:16 AM) AGAP [3-20] 10 (07/01/16 3:16 AM) BUN [4-20 mg/dL] 8 mg/dL (07/01/16 3:16 AM) Glucose Lvl [70-100 mg/dL] 88 mg/dL (07/01/16 3:16 AM) Creatinine Lvl [0.44-1.03 mg/dL] 0.86 mg/dL (07/01/16 3:16 AM) eGFR [>60] >601 (07/01/16 3:16 AM) Calcium Lvl [8.6-10.0 mg/dL] 9.7 mg/dL (07/01/16 3:16 AM) Screen, Urine NPT Negative (07/01/16 3:25 AM) 1Result Comment: Multiply eGFR results by 1.21 for race.Urinalysis Most recent to oldest [Reference Range]: 1 UA Color Yellow (07/01/16 3:59 AM) UA Appear Sl Cloudy (07/01/16 3:59 AM) UA pH [5.0-8.0] 6.0 (07/01/16 3:59 AM) UA Leuk Est [Negative] Negative (07/01/16 3:59 AM) UA Nitrite [Negative] Negative (07/01/16 3:59 AM) UA Protein [Negative] Negative (07/01/16 3:59 AM) UA Glucose [Negative] Negative (07/01/16 3:59 AM) UA Ketones [Negative] Negative (07/01/16 3:59 AM) UA Urobilinogen [<1.0] Negative (07/01/16 3:59 AM) UA Bili [Negative] Negative (07/01/16 3:59 AM) UA Blood [Negative] Pos 1+ *ABN* (07/01/16 3:59 AM) UA Spec Grav [1.003-1.030] 1.010 (07/01/16 3:59 AM) Type Clean Catch (07/01/16 3:59 AM) UA WBC [0-4] 0-2 (07/01/16 3:59 AM) UA RBC [0-2] 0-2 (07/01/16 3:59 AM) Epithelial Cells 5-10 (07/01/16 3:59 AM) UA Bacteria Occasional *ABN* (07/01/16 3:59 AM) UA Hyal Cast [0-3] 1-3 (07/01/16 3:59 AM) UA Mucous Present (07/01/16 3:59 AM) Immunizations No data available for this [...]
--- OUTSIDE RECORDS SUMMARY | 2017-02-06 12:38 | External Medical Summary | Referral Summary ---
:1990 Author Organization [facility] Address [address] [place] [address] Care Team Providers Name Role Phone [facility], The Primary Care Physician Unavailable Encounter [facility] [id number] Date(s): 07/13/15 - 07/13/15 [facility] [address] [place] [address], [place] [address] Discharge Diagnosis: Abdominal pain Discharge Disposition: 01-Home or Self Care Attending Physician: Godwin Shen DO Admitting Physician: Ciaran Davies MD Referring Physician: Self Referred, X Vital Signs Most recent to oldest [Reference Range]: 1 Temperature Oral [35.8-37.3 degC] 36.0 degC (07/13/15 3:50 PM) Peripheral Pulse Rate [60-100 bpm] 83 bpm (07/13/15 7:25 PM) Heart Rate Monitored [60-100 bpm] 82 bpm (07/13/15 6:27 PM) Respiratory Rate [14-20 br/min] 16 br/min (07/13/15 7:25 PM) Blood Pressure [90-140/60-90 mmHg] 130/75mmHg (07/13/15 7:25 PM) Mean Arterial Pressure, Cuff 96 mmHg (07/13/15 6:27 PM) SpO2 95 % (07/13/15 7:25 PM) Problem List Condition Effective Dates Status [...] SubLingual, q4hr, Abdominal Cramping, per protocol Dr. Yasmnay Goetz, # 12 tabs, 0 Refill(s) Start Date: 05/03/15 Status: OrderedNaprosyn 250 mg oral tablet 250 mg 1 tabs, Oral, BID, as needed for pain, # 20 tabs, 0 Refill(s) Start Date: 06/26/15 Status: OrderedPercocet 5/325 oral tablet 1 tabs, Oral, q4hr, as needed for pain, X 2 days, # 12 tabs, 0 Refill(s) Start Date: 07/13/15 Stop Date: 07/15/15 Status: OrderedRisperDAL 2 mg oral tablet 2 [...] # 12 tabs, 0 Refill(s) Start Date: 07/13/15 Stop Date: 07/15/15 Status: Ordered Results Hematology Most recent to oldest [Reference Range]: 1 WBC [4.8-10.8 10*3/uL] 7.7 10*3/uL (07/13/15 5:49 PM) RBC [4.00-5.20] 5.30 *HI* (07/13/15 5:49 PM) Hgb [12.0-16.0 gm/dL] 13.8 gm/dL (07/13/15 5:49 PM) Hct [37.0-47.0 %] 41.9 % (07/13/15 5:49 PM) MCV [82.0-99.0 fL] 79.1 fL *LOW* (07/13/15 5:49 PM) MCH [27.0-32.0 pg] 26.0 pg *LOW* (07/13/15 5:49 PM) MCHC [32.0-36.0 gm/dL] 32.9 gm/dL (07/13/15 5:49 PM) RDW [11.5-14.5 %] 16.4 % *HI* (07/13/15 5:49 PM) Platelet [150-400 10*3/uL] 306 10*3/uL (07/13/15 5:49 PM) MPV [9.4-12.4 fL] 9.9 fL (07/13/15 5:49 PM) Immature Granulocytes [0.0-1.0 %] 0.4 % (07/13/15 5:49 PM) Neutrophils [51-75 %] 48 % *LOW* (07/13/15 5:49 PM) Lymphocytes [20-46 %] 37 % (07/13/15 5:49 PM) Monocytes [4-11 %] 9 % (07/13/15 5:49 PM) Eosinophils [0-4 %] 5 % *HI* (07/13/15 5:49 PM) Basophils [0-2 %] 1 % (07/13/15 5:49 PM) Neutro Absolute [1.90-7.00 10*3] 3.71 10*3 (07/13/15 5:49 PM) Lymph Absolute [0.80-3.30 10*3] 2.86 10*3 (07/13/15 5:49 PM) [place] Absolute [0.30-1.00 10*3] 0.66 10*3 (07/13/15 5:49 PM) Eos Absolute [0.00-0.50 10*3] 0.35 10*3 (07/13/15 5:49 PM) Baso Absolute [0.00-0.20 10*3] 0.08 10*3 (07/13/15 5:49 PM) Chemistry Most recent to oldest [Reference Range]: 1 Sodium Lvl [136-144 mEq/L] 140 mEq/L (07/13/15 5:49 PM) Potassium Lvl [3.6-5.1 mEq/L] 4.0 mEq/L (07/13/15 5:49 PM) Chloride [99-109 mEq/L] 105 mEq/L (07/13/15 5:49 PM) CO2 [22-32 mEq/L] 26 mEq/L (07/13/15 5:49 PM) AGAP [3-20] 9 (07/13/15 5:49 PM) BUN [4-20 mg/dL] 8 mg/dL (07/13/15 5:49 PM) Glucose Lvl [70-100 mg/dL] 95 mg/dL (07/13/15 5:49 PM) Creatinine Lvl [0.44-1.03 mg/dL] 0.72 mg/dL (07/13/15 5:49 PM) eGFR [>60] >601 (07/13/15 5:49 PM) Calcium Lvl [8.6-10.0 mg/dL] 9.6 mg/dL (07/13/15 5:49 PM) Albumin Lvl [3.5-4.8 gm/dL] 4.0 gm/dL (07/13/15 5:49 PM) Total Protein [6.1-7.9 gm/dL] 6.9 gm/dL (07/13/15 5:49 PM) Globulin [1.9-4.3 gm/dL] 2.9 gm/dL (07/13/15 5:49 PM) ALT [14-54 U/L] 48 U/L (07/13/15 5:49 PM) AST [15-41 U/L] 29 U/L (07/13/15 5:49 PM) Alk Phos [26-104 U/L] 79 U/L (07/13/15 5:49 PM) Bili Total [0.2-1.2 mg/dL] 0.2 mg/dL2 (07/13/15 5:49 PM) Lipase Lvl [8-48 U/L] 35 U/L (07/13/15 5:49 PM) Creatinine Venous [0.4-1.0 mg/dL] 0.7 mg/dL (07/13/15 5:47 PM) Screen, Urine NPT Negative (07/13/15 4:16 PM) 1Result Comment: Multiply eGFR results by 1.21 for race.2Result Comment: Naproxen, specifically the metabolite O-desmethylnaproxen, may cause spurious elevation in Total Bilirubin levels.Urinalysis Most recent to oldest [Reference Range]: 1 UA Color Yellow (07/13/15 4:59 PM) UA Appear Clear (07/13/15 4:59 PM) UA pH [5.0-8.0] 7.0 (07/13/15 4:59 PM) UA Leuk Est [Negative] Negative (07/13/15 4:59 PM) UA Nitrite [Negative] Negative (07/13/15 4:59 PM) UA Protein [Negative] Negative (07/13/15 4:59 PM) UA Glucose [Negative] Negative (07/13/15 4:59 PM) UA Ketones [Negative] Negative (07/13/15 4:59 PM) UA Urobilinogen [<1.0] Negative (07/13/15 4:59 PM) UA Bili [Negative] Negative (07/13/15 4:59 PM) UA Blood [Negative] Negative (07/13/15 4:59 PM) UA Spec Grav [1.003-1.030] 1.020 (07/13/15 4:59 PM) Type Clean Catch (07/13/15 4:59 PM) Immunizations No data available for this [...]
--- OUTSIDE RECORDS SUMMARY | 2017-02-06 12:38 | External Medical Summary | Referral Summary ---
:1990 Author Organization Via [facility] Address [address] [place] [address] Care Team Providers Name Role Phone [facility], The Primary Care Physician Unavailable Encounter [facility] [id number] Date(s): 03/15/15 - 03/15/15 [facility] [address] [place] [address] us Final: PILONIDAL CYST WITHOUT MENTION OF ABSCESS Final: UNSPECIFIED ESSENTIAL HYPERTENSION Final: OBESITY, UNSPECIFIED Final: PARANOID TYPE SCHIZOPHRENIA, UNSPECIFIED STATE Final: TOBACCO USE DISORDER Final: Body Mass Index 35.0-35.9, adult Discharge Disposition: 01-Home or Self Care Attending Physician: Francis Yip MD Admitting Physician: Francis Yip MD Vital Signs Most recent to oldest [Reference Range]: 1 Temperature Temporal Artery [36.3-37.8 degC] 37.1 degC (03/15/15 10:00 AM) Peripheral Pulse Rate [60-100 bpm] 96 bpm (03/15/15 5:56 AM) Heart Rate Monitored [60-100 bpm] 100 bpm (03/15/15 10:00 AM) Respiratory Rate [14-20 br/min] 16 br/min (03/15/15 10:00 AM) Blood Pressure [90-140/60-90 mmHg] 167/96mmHg *HI* (03/15/15 10:00 AM) Mean Arterial Pressure, Cuff 95 mmHg (03/15/15 9:45 AM) SpO2 98 % (03/15/15 10:00 AM) Problem List Condition Effective Dates Status [...] Most recent to oldest [Reference Range]: 1 Blood Glucose, Capillary [70-100 mg/dL] 107 mg/dL *HI* (03/15/15 6:00 AM) U Beta hCG Ql [Negative] Positive (03/15/15 5:50 AM) Beta hCG Qnt 1 mIU/mL1 (03/15/15 6:52 AM) 1Result Comment: Normal Ranges for Quantitative Beta-HCG are as follows: Non- Females: 0 - 5 Gestation Wks 95% Range 0.2 - 1 4 - 50 1 - 2 50 - 500 2 - 3 100 - 5000 3 - 4 500 - 10,000 4 - 5 1,000 - 50,000 5 - 6 10,000 - 100,000 6 - 8 15,000 - 200,000 8 - 12 10,000 - 100,000 At 1200 on Saturday06/16/2014 the [facility] laboratories will change to a new methodology required by our instrument vendor for Beta HCG testing. This new methodology will not change the expected values but could cause as much as a 20% positive bias if you are trending a patient at the time the lab changes to the new methodology. Immunizations No data available for this section [...]
--- OUTSIDE RECORDS SUMMARY | 2017-02-06 12:38 | External Medical Summary | Referral Summary ---
:[address] [facility] Address [address] [place] [address] Care Team Providers Name Role Phone [facility], [facility] Primary Care Physician Unavailable Encounter [facility] [id number] Date(s): 11/14/15 - 11/14/[address] [facility] [address] [place], [place] [address] Discharge Diagnosis: Abdominal pain Discharge Disposition: 01-Home or Self Care Attending Physician: Anjum Gomez MD Admitting Physician: Anjum Gomez MD Vital Signs Most recent to oldest [Reference Range]: 1 Temperature Oral [35.8-37.3 degC] 36.6 degC (11/14/15 1:24 AM) Peripheral Pulse Rate [60-100 bpm] 76 bpm (11/14/15 4:04 AM) Heart Rate Monitored [60-100 bpm] 88 bpm (11/14/15 3:00 AM) Respiratory Rate [14-20 br/min] 99 br/min *HI* (11/14/15 4:04 AM) Blood Pressure [90-140/60-90 mmHg] 105/55mmHg (11/14/15 4:04 AM) Mean Arterial Pressure, Cuff 102 mmHg (11/14/15 3:00 AM) SpO2 99 % (11/14/15 4:04 AM) Problem List Condition Effective Dates Status [...] oldest [Reference Range]: 1 WBC [4.8-10.8 10*3/uL] 9.0 10*3/uL (11/14/15 2:09 AM) RBC [4.00-5.20] 4.85 (11/14/15 2:09 AM) Hgb [12.0-16.0 gm/dL] 13.3 gm/dL (11/14/15 2:09 AM) Hct [37.0-47.0 %] 39.3 % (11/14/15 2:09 AM) MCV [82.0-99.0 fL] 81.0 fL *LOW* (11/14/15:09 AM) MCH [27.0-32.0 pg] 27.4 pg (11/14/15:09 AM) MCHC [32.0-36.0 gm/dL] 33.8 gm/dL (11/14/15:09 AM) RDW [11.5-14.5 %] 14.9 % *HI* (11/14/15 2:09 AM) Platelet [150-400 10*3/uL] 295 10*3/uL (11/14/15 2:09 AM) MPV [9.4-12.4 fL] 9.8 fL (11/14/15:09 AM) Immature Granulocytes [0.0-1.0 %] 0.3 % (11/14/15:09 AM) Neutrophils [51-75 %] 41 % *LOW* (11/14/15: AM) Lymphocytes [20-46 %] 46 % (11/14/15 2:09 AM) Monocytes [4-11 %] 9 % (11/14/15 2:09 AM) Eosinophils [0-4 %] 4 % (11/14/15:09 AM) Basophils [0-2 %] 0 % (11/14/15:09 AM) Neutro Absolute [1.90-7.00 10*3] 3.64 10*3 (11/14/15 2:09 AM) Lymph Absolute [0.80-3.30 10*3] 4.12 10*3 *HI* (11/14/15 2:09 AM) [place] Absolute [0.30-1.00 10*3] 0.78 10*3 (11/14/15 2:09 AM) Eos Absolute [0.00-0.50 10*3] 0.36 10*3 (11/14/15 2:09 AM) Baso Absolute [0.00-0.20 10*3] 0.04 10*3 (11/14/15 2:09 AM) Chemistry Most recent to oldest [Reference Range]: 1 Sodium Lvl [136-144 mEq/L] 136 mEq/L (11/14/15:09 AM) Potassium Lvl [3.6-5.1 mEq/L] 3.5 mEq/L *LOW* (11/14/15 AM) Chloride [99-109 mEq/L] 107 mEq/L (11/14/15:09 AM) CO2 [22-32 mEq/L] 23 mEq/L (11/14/15:09 AM) AGAP [3-20] 6 (11/14/1509 AM) BUN [4-20 mg/dL] 10 mg/dL (11/14/15:09 AM) Glucose Lvl [70-100 mg/dL] 104 mg/dL *HI* (11/14/15: AM) Creatinine Lvl [0.44-1.03 mg/dL] 0.83 mg/dL (11/14/15:09 AM) eGFR [>60] >601 (11/14/15 AM) Calcium Lvl [8.6-10.0 mg/dL] 9.1 mg/dL (11/14/1509 AM) Albumin Lvl [3.5-4.8 gm/dL] 3.5 gm/dL (11/14/15:09 AM) Total Protein [6.1-7.9 gm/dL] 6.3 gm/dL (11/14/15:09 AM) Globulin [1.9-4.3 gm/dL] 2.8 gm/dL (11/14/15:09 AM) ALT [14-54 U/L] 24 U/L (11/14/15:09 AM) AST [15-41 U/L] 20 U/L (11/14/15:09 AM) Alk Phos [26-104 U/L] 85 U/L (11/14/15:09 AM) Bili Total [0.2-1.2 mg/dL] 0.4 mg/dL2 (11/14/15 2:09 AM) Lipase Lvl [8-48 U/L] 21 U/L (11/14/15 2:09 AM) U Beta hCG Ql Negative (11/14/15:09 AM) 1Result Comment: Multiply eGFR results by 1.21 for race.2Result Comment: Naproxen, specifically the metabolite O-desmethylnaproxen, may cause spurious elevation in Total Bilirubin levels.Urinalysis Most recent to oldest [Reference Range]: 1 UA Color Yellow (11/14/15 2:09 AM) UA Appear Cloudy *ABN* (11/14/15 2:09 AM) UA pH [5.0-8.0] 5.0 (11/14/15 2:09 AM) UA Leuk Est [Negative] Negative (11/14/15 2:09 AM) UA Nitrite [Negative] Positive *ABN* (11/14/15 2:09 AM) UA Protein [Negative] Pos 1+ *ABN* (11/14/15 2:09 AM) UA Glucose [Negative] Negative (11/14/15 2:09 AM) UA Ketones [Negative] Negative (11/14/15 2:09 AM) UA Urobilinogen [<1.0] Negative (11/14/15 2:09 AM) UA Bili [Negative] Negative (11/14/15 2:09 AM) UA Blood [Negative] Negative (11/14/15 2:09 AM) UA Spec Grav [1.003-1.030] 1.035 *ABN* (11/14/15 2:09 AM) Type Clean Catch (11/14/15 2:09 AM) UA WBC [0-4] 5-10 *ABN* (11/14/15 2:09 AM) UA RBC [0-2] 2-5 (11/14/15 2:09 AM) Epithelial Cells 5-10 (11/14/15 2:09 AM) UA Bacteria Numerous *ABN* (11/14/15 2:09 AM) UA Mucous Present (11/14/15 2:09 AM) Microbiology Reports TEST:Affirm Vaginitis Panel STATUS:Auth (Verified) BODY SITE: SOURCE:Cervix/Vaginal COLLECTED DATE/TIME:11/14/15 2:09 AMAffirm Vaginitis PanelNegative for Trichomonas vaginalis Negative [...]
--- OUTSIDE RECORDS SUMMARY | 2017-02-06 12:38 | External Medical Summary ---
[...] Date Status [place] [address] 1 MG/ML Orally 1 ml 63-44 Once a day ProAir HFA [facility] 49908-53 108 (90 Base) November 24, 2 puffs as 51-85 MCG/ACT 2015 needed Inhalation every 4 hrs prn Seroquel NDC 03739-88 200 MG Orally 1 tablet 72-10 Once a day at bedtime Benadryl NDC 72770-24 25 MG Orally 1 tablet 09-99 every 6 hrs as needed Gabapentin NDC 50772-96 100 MG Orally not 92-01 Three times a defined day Ciprofloxacin HCl NDC 37382-50 500 MG Orally November 24, November 06, 1 tablet 37-01 Twice a day 2015 2015 [place] [address]-37 5-325 MG Orally 1 tablet 13-01 every 6 hrs as needed Procedures Procedure Coding System Code Date URINE TEST CPT-4 65873 November 25, 2015 URINE CULTURE/COLONY COUNT CPT-4 22841 November 25, 2015 URINALYSIS, AUTO, W/O SCOPE CPT-4 31719 November 25, 2015 Office Visit, Est Pt., Level 3 CPT-4 99995 November 25, 2015 URINE BACTERIA CULTURE CPT-4 64548 November 25, 2015 Vital Signs Date/Time: November 25, 2015 BMI 41.12 Index Weight 239.6 lbs Height 64 in Blood Pressure Diastolic 104 mm Hg Blood Pressure Systolic 144 mm Hg Temperature 98.9 F Cardiac Monitoring Heart Rate 99 /min Results Name Result Date Reference Range Unit Abnormality Flag CULTURE, URINE, ROUTINE ----CULTURE, URINE, ROUTINE SEE NOTE [id number] A Summary Purpose [facility]
[2017-02-06] MEDS ORDERED: KETOROLAC 60 MG/2 ML INJECTION IM ONE (13:15)
[2017-02-06] MEDS ORDERED: ORPHENADRINE 60 MG/2 ML INJECTION IM ONE (13:15)
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
[2017-02-06] MEDS: SALINE FLUSH 10ml SYRINGE IVF PRN (17:01)
[2017-02-06 17:50] VITALS: BMI 31.7
[2017-02-06] MEDS ORDERED: ONDANSETRON 4 MG/2 ML INJECTION IVP PRN (18:38)
[2017-02-06] MEDS ORDERED: SENNOSIDES 8.6 MG TABLET PO PRN (18:38)
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
[2017-02-06] MEDS: ACETAMINOPHEN 325 MG TABLET PO PRN (20:03)
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
[2017-02-07] MEDS: ACETAMINOPHEN 325 MG TABLET PO PRN ×4 (00:31→19:45)
[2017-02-07] MEDS: SALINE FLUSH 10ml SYRINGE IVF PRN ×2 (04:20→10:01)
--- NOTE | 2017-02-07 08:52 | XRay Report ---
Indication: wrist pain PROCEDURE: XR wrist LT 3-4 views: Encounter: Initial Comparison: None Findings: There is no acute fracture, dislocation or malalignment identified. Impression: No acute osseous abnormality. .
--- NOTE | 2017-02-07 09:13 | Progress Note ---
<MarcinTressa D - Last Filed: 02/07/17 09:20> Subjective: Annette was sleeping but easily awakened. She is feeling better now that she's back on her medications but c/o pain "all over". She's no longer hearing any hallucinations. D/W nursing - waiting on a bed. Objective Vital signs: Temperature 97.5 F 02/07/17 04:00 Pulse Rate 54 L 02/07/17 07:00 Respiratory Rate 18 02/07/17 07:00 Blood Pressure 108/55 02/07/17 07:00 Pulse Oximetry 99 02/07/17 07:00 Oxygen Delivery Method Room Air Rhythm: Normal Sinus Rhythm Body Mass Index: 31.7 - Constitutional Present: no acute distress, well nourished, well developed, obese - Routine HEENT Exam Head: Present: normocephalic Eye: Absent: conjunctival icterus - Routine Respiratory Exam Present: CTA bilaterally - Routine Cardiovascular Exam Present: RRR, S1, S2 - Routine Abdominal Exam Present: soft, normoactive bowel sounds, tenderness (mild RLQ), non distended - Routine Extremities Exam Present: no edema - Routine Musculoskeletal Exam Musculoskeletal: Present: no clubbing or cyanosis - Routine Skin Exam Present: intact, dry, warm - Routine Neurological Exam Present: alert (drowsy), oriented X3 - Routine Psychiatric Exam Absent: normal affect (flat; tired) Results - Labs CBC & Chem 7: 02/07/17 04:09 02/07/17 04:09 Assessment and Plan (1) Elevated CK Current visit: Yes Status: Acute (2) Hypokalemia Current visit: Yes Status: Resolved (3) Borderline personality disorder Current visit: Yes Status: Acute (4) Paranoid schizophrenia Current visit: Yes Status: Acute (5) Schizophrenia Current visit: Yes Status: Acute (6) Leukocytosis Current visit: Yes Status: Resolved Resuscitation Status: Full Code Assessment and Plan: Feeling better Will discuss with CM for inpt placement Leukocytosis resolved K improved to 3.5 CK increased from 355 to 839 - will start IVF (2L NS at rate of 125 ml/hr) Na up slightly - IVF ordered Hyperglycemia - A1c was 5.3% Pain - Toradol 30 mg Q6h PRN Repeat labs in am - BMP and CK Sepsis Assessment - Evaluation Sepsis screening result: No Definite Risk Hospital Course Summary Disclaimer: The visit summary below is not to be considered part of the above Progress Note. <Samy Carolina S - Last Filed: 02/07/17 10:28> Objective Vital signs: Temperature 97.5 F 02/07/17 04:00 Pulse Rate 54 L 02/07/17 07:00 Respiratory Rate 18 02/07/17 07:00 Blood Pressure 108/55 02/07/17 07:00 Pulse Oximetry 99 02/07/17 07:00 Oxygen Delivery Method Room Air Results - Labs CBC & Chem 7: 02/07/17 04:09 02/07/17 04:09 Assessment and Plan (1) Paranoid schizophrenia Current visit: Yes Status: Acute (2) Borderline personality disorder Current visit: Yes Status: Acute (3) Schizophrenia Current visit: Yes Status: Acute (4) Hypokalemia Current visit: Yes Status: Resolved (5) Elevated CK Current visit: Yes Status: Acute (6) Leukocytosis Current visit: Yes Status: Resolved Assessment and Plan: Patient seen and examined with Vivian Burch NP. Agree with above A/P. Complains of pain all over. No further auditory hallucinations. Exam revealed some mild RLQ abd tenderness. Plan is to keep until bed becomes available at [facility]. Hospital Course Summary Disclaimer: The visit summary below is not to be considered part of the above Progress Note.
[2017-02-07] MEDS: KETOROLAC 30 MG/ML INJECTION IVP PRN ×2 (09:56→16:00)
[2017-02-07] MEDS: NS 1,000 ML IV SCH ×2 (10:00→20:41)
--- NOTE | 2017-02-07 19:01 | Neuropsych Progress Note ---
[facility] Subjective Date: 02/07/17 - Sujective/Severity of Illness Medications: Acetaminophen (Tylenol) 325 - 650 mg PO Q5HR PRN PRN Reason: Discomfort Last Admin: 02/07/17 13:14 Dose: 650 mg Sodium Chloride (Normal Saline) 1,000 mls @ 125 mls/hr IV .Q8H COSME Last Infusion: 02/07/17 15:00 Dose: 125 mls/hr Ketorolac Tromethamine (Toradol Inj) 30 mg IVP Q6H PRN PRN Reason: Pain Stop: 02/12/17 09:30 Last Admin: 02/07/17 16:00 Dose: 30 mg Lurasidone HCl (Latuda) 40 mg PO PM COSME Ondansetron HCl (Zofran) 4 mg IVP Q6H PRN PRN Reason: Nausea &/or vomiting Senna (Senna Lax) 17.2 mg PO HS PRN PRN Reason: Constipation Sodium Chloride (Iv Flush) 10 - 80 ml IVF PRN PRN PRN Reason: Flushing Last Admin: 02/07/17 10:01 Dose: 10 ml Subjective: Pt seen and chart examined. Nursing reports pt has been accepted to a psych hospital in tomorrow. On face to face the pt states she is doing better. She reports her anxiety is better controlled. She reports she still has AH at times but they are improved. She states she feels the Zyprexa has been helpful and would rather take that instead of the Latuda. She denies any S/I. Start Time: 18:45 Stop Time: 19:00 Mental Status Exam Vitals: Last Vital Signs Temp 98.3 F 02/07/17 15:11 Pulse 64 02/07/17 16:00 Resp 23 02/07/17 14:36 BP 121/69 02/07/17 15:00 Pulse Ox 98 02/07/17 14:00 Height: 1.63 m Weight: 84.3 kg - Mental Status Exam Muscle Strength/Tone: Weak Dressing: Other (Hosp. gown) Grooming: Good Attitude: Cooperative Motor Activity: Normal Eye Contact: Fair Speech: Normal Volume: Normal Rhythm: Appropriate Rhythm Orientation: Oriented to person, Oriented to place, Oriented to time Mood: Anxious Affect: Sad Rate of Thoughts: Delayed Thought Organization: Organized Associations: Intact Abstract Reasoning: Intact, able to abstract Computation: Intact Thought Content: Delusions Perception/Psychotic: Psychotic Current Hallucinations: Auditory Fund of Knowledge: Appropriate Suicidal Ideation: None Homicidal Ideation: Intermittent Insight: Poor Judgement: Poor Impulse Control: Poor - Laboratory Result Diagrams: 02/07/17 04:09 02/07/17 04:09 Laboratory Results - last 24 hr 02/07/17 14:15 Glucometer 84 Assessment and Plan (1) Schizophrenia Current visit: Yes Status: Acute Hospital Course Summary Disclaimer: The visit summary below is not to be considered part of the above Progress Note. Hospital Course: 02/07/17 19:01 Will D/C Latuda and start Zyprexa 5mg at HS. Will hold other psych meds
[2017-02-07] MEDS ORDERED: LURASIDONE 40mg TABLET PO SCH (20:00)
[2017-02-07] MEDS ORDERED: TRAMADOL 50 MG TABLET PO PRN (21:07)
[2017-02-07] MEDS ORDERED: OLANZapine 5 MG TABLET PO SCH (22:00)
[2017-02-08] MEDS: KETOROLAC 30 MG/ML INJECTION IVP PRN (01:10)
[2017-02-08] MEDS: ACETAMINOPHEN 325 MG TABLET PO PRN ×2 (04:05→11:59)
[2017-02-08] MEDS: SALINE FLUSH 10ml SYRINGE IVF PRN (04:10)
[2017-02-08] MEDS: NS 1,000 ML IV SCH (05:09)
[2017-02-08 10:38] VITALS: TEMP 97.7
--- NOTE | 2017-02-08 11:27 | Discharge Instructions ---
Discharge Plan - Med Rec/Dispo Prescriptions: New OLANZapine [Zyprexa] 5 mg PO HS tablet Continue Benztropine Mesylate 0.5 mg PO BID Trazodone [Desyrel] 100 mg PO HS Discontinued Lurasidone HCl [Latuda] 60 mg PO DAILY Discharge Instructions/Outpatient Orders: Final Provider Discharge Instructions Location: Determined By Patient - Disposition 65 To Psych Hosp/Unit
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
[2017-02-08 12:51] VITALS: BP 149/88; PULSE 115; RESP 52; O2SAT 92
[2017-02-08] MEDS ORDERED: BENZTROPINE 1 MG TABLET PO SCH (21:00)
== END 2017-02-08 12:37 | DRG 885 ==
LOC: CCU 11:41 → ED 11:41 → CCU 16:41
PROVIDERS: ADMIT Internal Medicine; ATTEND Internal Medicine